=== PATIENT | female | born 1965 | race Caucasian/White ===

== ENCOUNTER 2017-08-10 14:19 | Emergency (ER) | payer MEDICAID ==
[~2017-08-10] VITALS: Ht 172.7 cm; Wt 68.0 kg
[~2017-08-10 14:19] MED LIST: ASPI81 CHEW; DOCU1CAP39 PO; FENO1TAB76 PO; HYDR50CA PO; LORTA5 PO; PROT40TA PO; SHOWER/TUB CHAIR SM; SYNT175T PO; WALKER ROLLING
[2017-08-10 14:30] VITALS: BP 105/67; PULSE 100; RESP 16; TEMP 98.4; O2SAT 100
[2017-08-10 16:29] LABS: BILIRUBIN, URINE NEG (NEG); BLOOD, URINE MOD (NEG); GLUCOSE,URINE NEG (NEG); KETONE, URINE NEG (NEG); NITRITE,URINE NEG (NEG); SQUAMOUS EPITHELIAL CELL URINE 1 /hpf (0-5); URINE COLOR YELLOW (YELLW/STRAW); URINE LEUKOCYTE ESTERASE NEG (NEG)
--- NOTE | 2017-08-10 17:34 | PD ---
HPI Chief Complaint: Skin Problem Time Seen by Provider: 17:26 Travel History International Travel<30 days: No Contact w/Intl Traveler<30days: No Traveled to known affect area: No History of Present Illness HPI patient c/o lump to scalp over last 4 days or so, some foul smelling drainage came out of it when she squeezed it, now not draining anymore. rates pain as 4/ 10, worse with touching/palpating and squeezing. patient also c/o right flank pain radiating to rt LQ today as well as red looking urine, 8/10, intermittent..... pcp is dr lewis pmx of hypothyroid, breast ca s/p mastectomy, neuropathy from chemo PFSH Past Medical History Arthritis: No Asthma: No Autoimmune Disease: No Blood Disorders: No Anxiety: No Depression: No Heart Rhythm Problems: No Cancer: Yes (BREAST CANCER LEFT) Cardiovascular Problems: No High Cholesterol: No Chemotherapy: Yes Chest Pain: No Congestive Heart Failure: No COPD: No Cerebrovascular Accident: No Diabetes: No Diminished Hearing: No Endocrine: Yes GERD: No Glaucoma: No Genitourinary: Yes ("POLYPS ON MY KIDNEY") Headaches: No Hepatitis: No Hiatal Hernia: No Hypertension: No Immune Disorder: No Implanted Vascular Access Dvce: Yes Kidney Stones: No Musculoskeletal: No Neurologic: Yes Psychiatric: No Reproductive: No Respiratory: No Myocardial Infarction: No Radiation Therapy: Yes Renal Failure: No Seizures: No Sickle Cell Disease: No Sleep Apnea: No Thyroid Disease: Yes (HYPO) Ulcer: No : 2 Para: 2 Miscarriage: 0 : 0 Past Surgical History Abdominal Surgery: Yes (HYSTERECTOMY) AICD: No Arteriovenous Shunt: No Body Medical Devices: CLIP IN LEFT BREAST Cardiac Surgery: No Section: Yes (X2 ) Ear Surgery: No Endocrine Surgery: No Eye Surgery: No Genitourinary Surgery: No Hysterectomy: Yes Insulin Pump: No Joint Replacement: No Mastectomy: Yes (jun 2013 left/left lumpectomy 2007) Oral Surgery: No Pacemaker: No Thoracic Surgery: No Other Surgery: Yes (MASECTOMY WITH LYMPH REMOVAL, C SECTION) Social History Alcohol Use: No Tobacco Use: Yes ("5-6 CIG/DAY") Substance Use: Yes ("years ago cocaine and weed") Allergies-Medications (Allergen,Severity, Reaction): Coded Allergies: acetaminophen (Verified Allergy, Mild, Itching, 3/23/18) hydrocodone (Verified Allergy, Mild, Nausea/Vomiting, 08/10/17) oxycodone (Verified Allergy, Mild, Itching, 08/10/17) *MDRO Multi-Drug Resistant Organism (Verified Adverse Reaction, Unknown, ) MRSA MRSA PCR screens negative on 01/12/2015 & 01/14/2015 Cleared per Infection Control Reported Meds & Prescriptions Reported Meds & Active Scripts Active Reported Dilaudid (Hydromorphone HCl) 8 Mg Tab 8 Mg PO Q6H PRN Phenergan (Promethazine HCl) 25 Mg Tablet 25 Mg PO Q6H PRN Synthroid (Levothyroxine Sodium) 150 Mcg Tab 150 Mcg PO DAILY Review of Systems General / Constitutional: No: Fever Eyes: No: Visual changes HENT: No: Headaches Cardiovascular: No: Chest Pain or Discomfort Respiratory: No: Shortness of Breath Gastrointestinal: No: Abdominal Pain Genitourinary: Positive: Flank Pain Musculoskeletal: No: Pain Skin: Positive Lumps Neurologic: No: Weakness Psychiatric: No: Depression Endocrine: No: Polydipsia Hematologic/Lymphatic: No: Easy Bruising Physical Exam Narrative GENERAL: SKIN: Warm and dry. HEAD: Atraumatic. Normocephalic. mid scalp is a 2 cm indurated lump on scalp no longer draining, EYES: Pupils equal and round. No scleral icterus. No injection or drainage. ENT: No nasal bleeding or discharge. Mucous membranes pink and moist. NECK: Trachea midline. No JVD. CARDIOVASCULAR: Regular rate and rhythm. RESPIRATORY: No accessory muscle use. Clear to auscultation. Breath sounds equal bilaterally. GASTROINTESTINAL: Abdomen soft, non-tender, nondistended. MUSCULOSKELETAL: Extremities without clubbing, cyanosis, or edema. No obvious deformities. NEUROLOGICAL: Awake and alert. No obvious cranial nerve deficits. Motor grossly within normal limits. Five out of 5 muscle strength in the arms and legs. Normal speech. PSYCHIATRIC: Appropriate mood and affect; insight and judgment normal. Data Data Last Documented VS Vital Signs Date Time Temp Pulse Resp B/P (MAP) Pulse Ox O2 Delivery O2 Flow Rate FiO2 08/10/17 19:59 20 08/10/17 14:30 98.4 100 105/67 (80) 100 Orders Orders Complete Blood Count With Diff (08/10/17 14:51) Comprehensive Metabolic Panel (08/10/17 14:51) Urinalysis - C+S If Indicated (08/10/17 14:51) Ct Abd/Pel W/O Iv Contrast (08/10/17 17:34) Clindamycin Inj (Cleocin Inj) (08/10/17 17:45) Clindamycin 600 Mg/Ns Premix (Cleocin 60 (08/10/17 18:00) Ketorolac Inj (Toradol Inj) (08/10/17 18:00) Labs Laboratory Tests Test 08/10/17 13:05 08/10/17 18:00 Urine Color YELLOW Urine Turbidity CLEAR Urine pH 7.0 Urine Specific [place] 1.013 Urine Protein NEG mg/dL Urine Glucose (UA) NEG mg/dL Urine Ketones NEG mg/dL Urine Occult Blood MOD Urine Nitrite NEG Urine Bilirubin NEG Urine Urobilinogen LESS THAN 2.0 MG/DL Urine Leukocyte Esterase NEG Urine RBC 105 /hpf Urine WBC 1 /hpf Urine Squamous Epithelial Cells 1 /hpf Microscopic Urinalysis Comment CULT NOT INDICATED White Blood Count 5.7 TH/MM3 Red Blood Count 4.17 MIL/MM3 Hemoglobin 11.9 GM/DL Hematocrit 36.0 % Mean Corpuscular Volume 86.4 FL Mean Corpuscular Hemoglobin 28.6 PG Mean Corpuscular Hemoglobin Concent 33.0 % Red Cell Distribution Width 14.5 % Platelet Count 251 TH/MM3 Mean Platelet Volume 8.5 FL Neutrophils (%) (Auto) 58.6 % Lymphocytes (%) (Auto) 30.8 % Monocytes (%) (Auto) 6.1 % Eosinophils (%) (Auto) 4.1 % Basophils (%) (Auto) 0.4 % Neutrophils # (Auto) 3.3 TH/MM3 Lymphocytes # (Auto) 1.8 TH/MM3 Monocytes # (Auto) 0.3 TH/MM3 Eosinophils # (Auto) 0.2 TH/MM3 Basophils # (Auto) 0.0 TH/MM3 CBC Comment DIFF FINAL Differential Comment Blood Urea Nitrogen 13 MG/DL Creatinine 0.84 MG/DL Random Glucose 102 MG/DL Total Protein 7.8 GM/DL Albumin 3.3 GM/DL Calcium Level 9.5 MG/DL Alkaline Phosphatase 98 U/L Aspartate Amino Transf (AST/SGOT) 36 U/L Alanine Aminotransferase (ALT/SGPT) 48 U/L Total Bilirubin 0.2 MG/DL Sodium Level 138 MEQ/L Potassium Level 4.3 MEQ/L Chloride Level 106 MEQ/L Carbon Dioxide Level 25.4 MEQ/L Anion Gap 7 MEQ/L Estimat Glomerular Filtration Rate 71 ML/MIN MDM Medical Decision Making Medical Screen Exam Complete: Yes Emergency Medical Condition: Yes Medical Record Reviewed: Yes Differential Diagnosis cellulitis v abscess v kidney stone v pyelo Narrative Course CT STONE: 1. For a calculus in the proximal right ureter with mild dilatation of the right renal collecting system. Small right renal cyst. 2. Cholecystectomy. 3. Nonobstructing calculi lower pole left kidney. 4. Constipation. CBC SHOWS NO LEUKOCYTOSIS/ANEMIA/OR LEFT SHIFT...NORMAL PLATELET COUNT UA SHOWS HEMATURIA WITHOUT BACTERIURIA ELECTROLYTES NORMAL, NORMAL LIVER/KIDNEY FUNCTIONS Diagnosis Primary Impression: scalp folliculitis Additional Impression: NEPHROLITHIASIS Patient Instructions: Folliculitis (ED), General Instructions, Kidney Stones ( ED) Scripts Sulfamethoxazole-Trimethoprim (Bactrim DS) 800-160 Mg Tab 1 TAB PO BID for Infection, #20 TAB 0 Refills Prov: Tj Duran MD 08/10/17 Ketorolac (Ketorolac) 10 Mg Tab 10 MG PO TID Y for Pain Management, #15 TAB 0 Refills Prov: Tj Duran MD 08/10/17 Disposition: 01 DISCHARGE HOME Condition: Stable Tj Duran MD Aug 10, 2017 17:34
[2017-08-10] MEDS ORDERED: DILA8TAB4 PO (17:37)
[2017-08-10] MEDS ORDERED: PROM25TA10 PO (17:37)
[2017-08-10] MEDS ORDERED: LEVO.15 PO (17:37)
[2017-08-10] MEDS ORDERED: CLINDAMYCIN PHOS 300 MG/2 ML VIAL IM ONE (17:45)
[2017-08-10] MEDS ORDERED: KETOROLAC TROMETHAMINE 30 MG/ML (IVP) VIAL IV PUSH ONE (18:00)
[2017-08-10] MEDS ORDERED: CLINDAMYCIN 600 MG/NS PREMIX 50 ML IV ONE (18:00)
[2017-08-10 18:51] LABS: AUTOMATED NEUTROPHIL # 3.3 TH/MM3 (1.8-7.7); BASOPHIL % 0.4 % (0.0-2.0); EOSINOPHIL # 0.2 TH/MM3 (0-0.4); EOSINOPHIL % 4.1 % (0.0-4.0); HEMOGLOBIN 11.9 GM/DL (11.6-15.3); LYMPH % 30.8 % (9.0-44.0); LYMPHOCYTE # 1.8 TH/MM3 (1.0-4.8); MEAN CELL VOLUME 86.4 FL (80.0-100.0); MEAN CORPUSCULAR HEMOGLOBIN 28.6 PG (27.0-34.0); MEAN PLATELET VOLUME 8.5 FL (7.0-11.0); MONO % 6.1 % (0.0-8.0); MONOCYTE # 0.3 TH/MM3 (0-0.9); NEUT % 58.6 % (16.0-70.0); PLATELET COUNT 251 TH/MM3 (150-450); RED BLOOD COUNT 4.17 MIL/MM3 (4.00-5.30); RED CELL DISTRIBUTION WIDTH 14.5 % (11.6-17.2); WHITE BLOOD COUNT 5.7 TH/MM3 (4.0-11.0)
[2017-08-10 19:09] LABS: ALBUMIN 3.3 GM/DL (3.4-5.0); AST (GOT) 36 U/L (15-37); BICARBONATE 25.4 MEQ/L (21.0-32.0); BLOOD UREA NITROGEN 13 MG/DL (7-18); CALCIUM 9.5 MG/DL (8.5-10.1); CHLORIDE 106 MEQ/L (98-107); CREATININE 0.84 MG/DL (0.50-1.00); GLOMERULAR FILTRATION RATE 71 ML/MIN (>89); GLUCOSE,RANDOM 102 MG/DL (74-106); SODIUM (NA) 138 MEQ/L (136-145)
[2017-08-10 19:10] LABS: ALT (GPT) 48 U/L (10-53)
[2017-08-10 19:13] LABS: ALKALINE PHOSPHATASE 98 U/L (45-117); TOTAL BILIRUBIN ADULT 0.2 MG/DL (0.2-1.0); TOTAL PROTEIN 7.8 GM/DL (6.4-8.2)
[2017-08-10 19:59] VITALS: RESP 20
--- NOTE | 2017-08-10 20:08 | RADRPT ---
EXAM DATE/TIME: 08/10/2017 18:45 [facility] COMPARISON: No previous studies available for comparison. INDICATIONS : Right flank pain; possible renal calculi. ORAL CONTRAST: No oral contrast ingested. RADIATION DOSE: 12.34 CTDIvol (mGy) MEDICAL HISTORY : Carcinoma, breast. Hypothyroidism SURGICAL HISTORY : Hysterectomy. section.Mastectomy, left. ENCOUNTER: Initial ACUITY: 1 day PAIN SCALE: 3/10 LOCATION: Right flank TECHNIQUE: Volumetric scanning of the abdomen and pelvis was performed. Using automated exposure control and ad justment of the mA and/or kV according to patient size, radiation dose was kept as low as reasonably achievable to obtain optimal diagnostic quality images. DICOM format image data is available electro nically for review and comparison. FINDINGS: There is a 7 mm x 4 mm calculus in the proximal right ureter is minimal dilatation of the right renal collecting system. There no obstructing calculi in the lower pole left kidney measuring about 2 mm i n diameter. Lung bases are clear. No acute findings in the liver, spleen, adrenals are pancreas. Previous cholecy stectomy. Large severe constipation. Trace free fluid in the pelvis. No acute bony abnormalities. CONCLUSION: 1. For a calculus in the proximal right ureter with mild dilatation of the right renal collecting sys tem. Small right renal cyst. 2. Cholecystectomy. 3. Nonobstructing calculi lower pole left kidney. 4. Constipation. Mauro Camarillo MD on August 10, 2017 at 20:02 Board Certified Radiologist. This report was verified electronically.
[2017-08-10] MEDS ORDERED: KETO10 PO (20:20)
[2017-08-10] MEDS ORDERED: BACT800T5 PO (20:20)
== END 2017-08-10 21:21 | disposition home or self-care (01) ==
LOC: NEPD 14:19
DX: L73.9 Follicular disorder, unspecified (principal); N20.2 Calculus of kidney with calculus of ureter; E03.9 Hypothyroidism, unspecified; G62.0 Drug-induced polyneuropathy; Z85.3 Personal history of malignant neoplasm of breast; F17.210 Nicotine dependence, cigarettes, uncomplicated
CPT/HCPCS: 74176; 80053; 81001; 85025; 96374; 96375; 99284; J1885

== ENCOUNTER 2017-08-27 19:21 | Emergency (ER) | payer MEDICAID ==
[~2017-08-27] VITALS: Ht 172.7 cm; Wt 68.6 kg
[~2017-08-27 19:21] MED LIST changes: -ASPI81 CHEW; +BACT800T5 PO; +DILA8TAB4 PO; -DOCU1CAP39 PO; -FENO1TAB76 PO; -HYDR50CA PO; +KETO10 PO; +LEVO.15 PO; -LORTA5 PO; +PROM25TA10 PO; -PROT40TA PO; -SHOWER/TUB CHAIR SM; -SYNT175T PO; -WALKER ROLLING
[2017-08-27 20:03] VITALS: BP 157/109; PULSE 99; RESP 20; TEMP 98.5; O2SAT 99
[2017-08-28] MEDS ORDERED: SODIUM CHLOR 0.9% 1000 ML INJ 1,000 ML IV SCH (00:07)
--- NOTE | 2017-08-28 00:12 | PD ---
HPI Chief Complaint: Flank/Kidney Pain Time Seen by Provider: 00:07 Travel History International Travel<30 days: No Contact w/Intl Traveler<30days: No Traveled to known affect area: No History of Present Illness HPI 51-year-old female patient with history of kidney stones, complex bladder cyst, previous breast cancer status post treatment, presents to the ER today because she has had several days history of suprapubic pains with radiation up to the right flank area. She states the pain is a 10 out of 10. She has been nauseous but denies any vomiting, fevers, or any other symptoms. She states that she is also been having some blood in her urine. Modifying Factors: None Associated Signs & Symptoms: Right flank pain, lower abdominal pain, blood in the urine Risk Factors: Kidney stone history, but complex bladder cyst PFSH Past Medical History Arthritis: No Asthma: No Autoimmune Disease: No Blood Disorders: No Anxiety: No Depression: No Heart Rhythm Problems: No Cancer: Yes (BREAST CANCER LEFT) Cardiovascular Problems: No High Cholesterol: No Chemotherapy: Yes Chest Pain: No Congestive Heart Failure: No COPD: No Cerebrovascular Accident: No Diabetes: No Diminished Hearing: No Endocrine: Yes GERD: No Glaucoma: No Genitourinary: Yes ("POLYPS ON MY KIDNEY") Headaches: No Hepatitis: No Hiatal Hernia: No Hypertension: No Immune Disorder: No Implanted Vascular Access Dvce: Yes Kidney Stones: No Musculoskeletal: No Neurologic: Yes Psychiatric: No Reproductive: No Respiratory: No Immunizations Current: Yes Myocardial Infarction: No Radiation Therapy: Yes Renal Failure: No Seizures: No Sickle Cell Disease: No Sleep Apnea: No Thyroid Disease: Yes (HYPO) Ulcer: No Menopausal: Yes : 2 Para: 2 Miscarriage: 0 : 0 Past Surgical History Abdominal Surgery: Yes (HYSTERECTOMY) AICD: No Arteriovenous Shunt: No Body Medical Devices: CLIP IN LEFT BREAST Cardiac Surgery: No Section: Yes (X2 ) Ear Surgery: No Endocrine Surgery: No Eye Surgery: No Genitourinary Surgery: No Hysterectomy: Yes Insulin Pump: No Joint Replacement: No Mastectomy: Yes (jun 2013 left/left lumpectomy 2007) Oral Surgery: No Pacemaker: No Thoracic Surgery: No Other Surgery: Yes (MASECTOMY WITH LYMPH REMOVAL, C SECTION) Social History Alcohol Use: No Tobacco Use: Yes ("5-6 CIG/DAY") Substance Use: Yes ("years ago cocaine and weed") Allergies-Medications (Allergen,Severity, Reaction): Coded Allergies: acetaminophen (Verified Allergy, Mild, Itching, 08/10/17) hydrocodone (Verified Allergy, Mild, Nausea/Vomiting, 08/10/17) oxycodone (Verified Allergy, Mild, Itching, 08/10/17) *MDRO Multi-Drug Resistant Organism (Verified Adverse Reaction, Unknown, ) MRSA MRSA PCR screens negative on 01/12/2015 & 01/14/2015 Cleared per Infection Control Reported Meds & Prescriptions Reported Meds & Active Scripts Active Bactrim DS (Sulfamethoxazole-Trimethoprim) 800-160 Mg Tab 1 Tab PO BID Ketorolac (Ketorolac Tromethamine) 10 Mg Tab 10 Mg PO TID PRN Reported Dilaudid (Hydromorphone HCl) 8 Mg Tab 8 Mg PO Q6H PRN Phenergan (Promethazine HCl) 25 Mg Tablet 25 Mg PO Q6H PRN Synthroid (Levothyroxine Sodium) 150 Mcg Tab 150 Mcg PO DAILY Review of Systems Except as stated in HPI: all other systems reviewed are Neg Physical Exam Narrative GENERAL: Well-developed middle-aged female patient currently in mild distress. Awake and oriented 3. SKIN: Focused skin assessment warm/dry. HEAD: Atraumatic. Normocephalic. EYES: Pupils equal and round. No scleral icterus. No injection or drainage. ENT: No nasal bleeding or discharge. Mucous membranes pink and moist. NECK: Trachea midline. No JVD. CARDIOVASCULAR: Regular rate and rhythm. No murmur appreciated. RESPIRATORY: No accessory muscle use. Clear to auscultation. Breath sounds equal bilaterally. GASTROINTESTINAL: Abdomen soft, pelvic and suprapubic tenderness without guarding or rebound, nondistended. Hepatic and splenic margins not palpable. MUSCULOSKELETAL: No obvious deformities. No clubbing. No cyanosis. No edema. BACK: Right CVA tenderness. No rash. No point tenderness on palpation of the spine. NEUROLOGICAL: Awake and alert. No obvious cranial nerve deficits. Motor grossly within normal limits. Normal speech. PSYCHIATRIC: Appropriate mood and affect; insight and judgment normal. Data Data Last Documented VS Vital Signs Date Time Temp Pulse Resp B/P (MAP) Pulse Ox O2 Delivery O2 Flow Rate FiO2 08/27/17 20:03 98.5 99 20 157/109 (125) 99 Orders Orders Urinalysis - C+S If Indicated (08/28/17 00:02) Complete Blood Count With Diff (08/28/17 00:07) Comprehensive Metabolic Panel (08/28/17 00:07) Ct Abd/Pel W/O Iv Contrast (08/28/17 00:07) Iv Access Insert/Monitor (08/28/17 00:07) Ecg Monitoring (08/28/17 00:07) Oximetry (08/28/17 00:07) Sodium Chlor 0.9% 1000 Ml Inj (Ns 1000 M (08/28/17 00:07) Sodium Chloride 0.9% Flush (Ns Flush) (08/28/17 00:15) Ketorolac Inj (Toradol Inj) (08/28/17 00:15) Labs Laboratory Tests Test 08/28/17 00:20 White Blood Count 5.7 TH/MM3 Red Blood Count 4.55 MIL/MM3 Hemoglobin 13.0 GM/DL Hematocrit 38.6 % Mean Corpuscular Volume 85.0 FL Mean Corpuscular Hemoglobin 28.6 PG Mean Corpuscular Hemoglobin Concent 33.6 % Red Cell Distribution Width 14.6 % Platelet Count 300 TH/MM3 Mean Platelet Volume 8.2 FL Neutrophils (%) (Auto) 53.1 % Lymphocytes (%) (Auto) 37.8 % Monocytes (%) (Auto) 5.9 % Eosinophils (%) (Auto) 2.2 % Basophils (%) (Auto) 1.0 % Neutrophils # (Auto) 3.0 TH/MM3 Lymphocytes # (Auto) 2.1 TH/MM3 Monocytes # (Auto) 0.3 TH/MM3 Eosinophils # (Auto) 0.1 TH/MM3 Basophils # (Auto) 0.1 TH/MM3 CBC Comment DIFF FINAL Differential Comment MDM Medical Decision Making Medical Screen Exam Complete: Yes Emergency Medical Condition: Yes Medical Record Reviewed: Yes Interpretation(s) Laboratory Tests Test 08/28/17 00:20 Differential Diagnosis Lower abdominal pains, right flank pain, hematuria: Renal colic versus UTI/ pyelonephritis versus other acute intra-abdominal processes Narrative Course Lab work, IV fluids, Toradol and CT has been ordered for the patient. Physician Communication Physician Communication Case is signed out at 1 AM to nurse practitioner Angy. Awaiting workup and CAT scan. Disposition based on findings. Diagnosis Primary Impression: Abdominal pain Condition: Stable Isabella Jones MD Aug 28, 2017 00:11
[2017-08-28] MEDS ORDERED: KETOROLAC TROMETHAMINE 30 MG/ML (IVP) VIAL IVP ONE (00:15)
[2017-08-28] MEDS ORDERED: SODIUM CHLORIDE 0.9% FLUSH 10 ML FLUSH IV FLUSH PRN (00:15)
[2017-08-28 00:27] LABS: BASOPHIL # 0.1 TH/MM3 (0-0.2); EOSINOPHIL # 0.1 TH/MM3 (0-0.4); EOSINOPHIL % 2.2 % (0.0-4.0); HEMATOCRIT 38.6 % (35.0-46.0); LYMPH % 37.8 % (9.0-44.0); LYMPHOCYTE # 2.1 TH/MM3 (1.0-4.8); MEAN CORPUSCULAR HEMOGLOBIN 28.6 PG (27.0-34.0); MEAN CORPUSCULAR HGB CONC 33.6 % (32.0-36.0); MEAN PLATELET VOLUME 8.2 FL (7.0-11.0); MONO % 5.9 % (0.0-8.0); MONOCYTE # 0.3 TH/MM3 (0-0.9); NEUT % 53.1 % (16.0-70.0); PLATELET COUNT 300 TH/MM3 (150-450); RED BLOOD COUNT 4.55 MIL/MM3 (4.00-5.30); RED CELL DISTRIBUTION WIDTH 14.6 % (11.6-17.2); WHITE BLOOD COUNT 5.7 TH/MM3 (4.0-11.0)
[2017-08-28 00:58] LABS: ALKALINE PHOSPHATASE 87 U/L (45-117); TOTAL BILIRUBIN ADULT 0.5 MG/DL (0.2-1.0); TOTAL PROTEIN 8.6 GM/DL (6.4-8.2)
--- NOTE | 2017-08-28 01:00 | RADRPT ---
EXAM DATE/TIME: 08/28/2017 00:42 [facility] COMPARISON: CT ABDOMEN & PELVIS W/O CONTRAST, August 10, 2017, 18:45. INDICATIONS : Right flank and lower qaudrant pain. ORAL CONTRAST: No oral contrast ingested. RADIATION DOSE: 7.33 CTDIvol (mGy) MEDICAL HISTORY : Carcinoma, breast. Renal calculi. SURGICAL HISTORY : Hysterectomy. Mastectomy, left. ENCOUNTER: Initial ACUITY: 2 days PAIN SCALE: 10/10 LOCATION: Right flank TECHNIQUE: Volumetric scanning of the abdomen and pelvis was performed. Using automated exposure control and ad justment of the mA and/or kV according to patient size, radiation dose was kept as low as reasonably achievable to obtain optimal diagnostic quality images. DICOM format image data is available electro nically for review and comparison. FINDINGS: LOWER LUNGS: The visualized lower lungs are clear. LIVER: Homogeneous density without lesion. There is no dilation of the biliary tree. Cholecystectomy clips. SPLEEN: Normal size without lesion. PANCREAS: Within normal limits. KIDNEYS: Normal in size and shape. There is no hydronephrosis left kidney. Several punctate nonobstructing le ft-sided renal calculi measures 1-2 mm. No right-sided renal calculi however there is mild to moderat e right-sided hydronephrosis and hydroureter leading to a distal right ureteral calculus measuring 5- 6 mm. ADRENAL GLANDS: Within normal limits. VASCULAR: There is no aortic aneurysm. BOWEL/MESENTERY: The stomach, small bowel, and colon demonstrate no acute abnormality. There is no free intraperitone al air or fluid. Normal appendix. ABDOMINAL WALL: Within normal limits. RETROPERITONEUM: There is no lymphadenopathy. BLADDER: No wall thickening or mass. REPRODUCTIVE: Within normal limits. INGUINAL: There is no lymphadenopathy or hernia. MUSCULOSKELETAL: Within normal limits for patient age. CONCLUSION: 1. Obstructing distal right ureteral calculus measures 5-6 mm. 2. Several punctate nonobstructing left-sided renal calculi. 3. Status post cholecystectomy. Marcus Sales MD on August 28, 2017 at 0:55 Board Certified Radiologist. This report was verified electronically.
[2017-08-28 01:10] LABS: ALBUMIN 3.7 GM/DL (3.4-5.0); ALT (GPT) 44 U/L (10-53); AST (GOT) 45 U/L (15-37); BICARBONATE 27.1 MEQ/L (21.0-32.0); BLOOD UREA NITROGEN 14 MG/DL (7-18); CALCIUM 9.5 MG/DL (8.5-10.1); CHLORIDE 105 MEQ/L (98-107); CREATININE 1.04 MG/DL (0.50-1.00); GLOMERULAR FILTRATION RATE 55 ML/MIN (>89); GLUCOSE,RANDOM 78 MG/DL (74-106); SODIUM (NA) 140 MEQ/L (136-145)
[2017-08-28] MEDS ORDERED: XANA2TAB2 PO (01:27)
[2017-08-28] MEDS ORDERED: SODIUM CHLOR 0.9% 1000 ML INJ 1,000 ML IV ONE (02:00)
[2017-08-28 04:32] LABS: AMORPHOUS SEDIMENT, URINE RARE; BILIRUBIN, URINE NEG (NEG); BLOOD, URINE LARGE (NEG); GLUCOSE,URINE NEG (NEG); KETONE, URINE TRACE mg/dL (NEG); MUCUS URINE FEW /lpf (OCC); NITRITE,URINE NEG (NEG); RENAL EPITHELIAL CELLS <1 /hpf; URINE COLOR YELLOW (YELLW/STRAW); URINE LEUKOCYTE ESTERASE TRACE (NEG)
[2017-08-28] MEDS ORDERED: CEPH-460 PO (04:44)
[2017-08-28] MEDS ORDERED: TAMS5CAP PO (04:44)
[2017-08-28] MEDS ORDERED: IBUP-232 PO (04:44)
--- NOTE | 2017-08-28 04:45 | PD ---
Physical Exam Time Seen by Provider: 04:41 Narrative Please refer to previous providers documentation for details regarding the patient's current visit. Data Data Last Documented VS Vital Signs Date Time Temp Pulse Resp B/P (MAP) Pulse Ox O2 Delivery O2 Flow Rate FiO2 08/27/17 20:03 98.5 99 20 157/109 (125) 99 Orders Orders Urinalysis - C+S If Indicated (08/28/17 00:02) Complete Blood Count With Diff (08/28/17 00:07) Comprehensive Metabolic Panel (08/28/17 00:07) Ct Abd/Pel W/O Iv Contrast (08/28/17 00:07) Iv Access Insert/Monitor (08/28/17 00:07) Ecg Monitoring (08/28/17 00:07) Oximetry (08/28/17 00:07) Sodium Chlor 0.9% 1000 Ml Inj (Ns 1000 M (08/28/17 00:07) Sodium Chloride 0.9% Flush (Ns Flush) (08/28/17 00:15) Ketorolac Inj (Toradol Inj) (08/28/17 00:15) Sodium Chlor 0.9% 1000 Ml Inj (Ns 1000 M (08/28/17 02:00) Urine Culture (08/28/17 04:15) Cefazolin Inj (Ancef Inj) (08/28/17 04:45) Ed Discharge Order (08/28/17 04:41) Labs Laboratory Tests Test 08/28/17 00:20 08/28/17 04:15 White Blood Count 5.7 TH/MM3 Red Blood Count 4.55 MIL/MM3 Hemoglobin 13.0 GM/DL Hematocrit 38.6 % Mean Corpuscular Volume 85.0 FL Mean Corpuscular Hemoglobin 28.6 PG Mean Corpuscular Hemoglobin Concent 33.6 % Red Cell Distribution Width 14.6 % Platelet Count 300 TH/MM3 Mean Platelet Volume 8.2 FL Neutrophils (%) (Auto) 53.1 % Lymphocytes (%) (Auto) 37.8 % Monocytes (%) (Auto) 5.9 % Eosinophils (%) (Auto) 2.2 % Basophils (%) (Auto) 1.0 % Neutrophils # (Auto) 3.0 TH/MM3 Lymphocytes # (Auto) 2.1 TH/MM3 Monocytes # (Auto) 0.3 TH/MM3 Eosinophils # (Auto) 0.1 TH/MM3 Basophils # (Auto) 0.1 TH/MM3 CBC Comment DIFF FINAL Differential Comment Blood Urea Nitrogen 14 MG/DL Creatinine 1.04 MG/DL Random Glucose 78 MG/DL Total Protein 8.6 GM/DL Albumin 3.7 GM/DL Calcium Level 9.5 MG/DL Alkaline Phosphatase 87 U/L Aspartate Amino Transf (AST/SGOT) 45 U/L Alanine Aminotransferase (ALT/SGPT) 44 U/L Total Bilirubin 0.5 MG/DL Sodium Level 140 MEQ/L Potassium Level 3.9 MEQ/L Chloride Level 105 MEQ/L Carbon Dioxide Level 27.1 MEQ/L Anion Gap 8 MEQ/L Estimat Glomerular Filtration Rate 55 ML/MIN Urine Color YELLOW Urine Turbidity HAZY Urine pH 8.0 Urine Specific [place] 1.014 Urine Protein TRACE mg/dL Urine Glucose (UA) NEG mg/dL Urine Ketones TRACE mg/dL Urine Occult Blood LARGE Urine Nitrite NEG Urine Bilirubin NEG Urine Urobilinogen LESS THAN 2.0 MG/DL Urine Leukocyte Esterase TRACE Urine RBC /hpf Urine WBC 10 /hpf Urine Renal Epithelial Cells <1 /hpf Urine Amorphous Sediment RARE Urine Mucus FEW /lpf Microscopic Urinalysis Comment CULTURE INDICATED MDM Medical Record Reviewed: Yes Supervised Visit with KALEB: No Narrative Course Patient was signed out to me with CT imaging pending. Urinalysis is not yet collected. CT imaging shows Last Impressions Abdomen/Pelvis CT 08/28/17 0007 Signed Impressions: Service Date/Time: Monday, August 28, 2017 00:42 - CONCLUSION: 1. Obstructing distal right ureteral calculus measures 5-6 mm. 2. Several punctate nonobstructing left-sided renal calculi. 3. Status post cholecystectomy. Marcus Sales MD Laboratory Tests Test 08/28/17 00:20 08/28/17 04:15 White Blood Count 5.7 TH/MM3 Red Blood Count 4.55 MIL/MM3 Hemoglobin 13.0 GM/DL Hematocrit 38.6 % Mean Corpuscular Volume 85.0 FL Mean Corpuscular Hemoglobin 28.6 PG Mean Corpuscular Hemoglobin Concent 33.6 % Red Cell Distribution Width 14.6 % Platelet Count 300 TH/MM3 Mean Platelet Volume 8.2 FL Neutrophils (%) (Auto) 53.1 % Lymphocytes (%) (Auto) 37.8 % Monocytes (%) (Auto) 5.9 % Eosinophils (%) (Auto) 2.2 % Basophils (%) (Auto) 1.0 % Neutrophils # (Auto) 3.0 TH/MM3 Lymphocytes # (Auto) 2.1 TH/MM3 Monocytes # (Auto) 0.3 TH/MM3 Eosinophils # (Auto) 0.1 TH/MM3 Basophils # (Auto) 0.1 TH/MM3 CBC Comment DIFF FINAL Differential Comment Blood Urea Nitrogen 14 MG/DL Creatinine 1.04 MG/DL Random Glucose 78 MG/DL Total Protein 8.6 GM/DL Albumin 3.7 GM/DL Calcium Level 9.5 MG/DL Alkaline Phosphatase 87 U/L Aspartate Amino Transf (AST/SGOT) 45 U/L Alanine Aminotransferase (ALT/SGPT) 44 U/L Total Bilirubin 0.5 MG/DL Sodium Level 140 MEQ/L Potassium Level 3.9 MEQ/L Chloride Level 105 MEQ/L Carbon Dioxide Level 27.1 MEQ/L Anion Gap 8 MEQ/L Estimat Glomerular Filtration Rate 55 ML/MIN Urine Color YELLOW Urine Turbidity HAZY Urine pH 8.0 Urine Specific [place] 1.014 Urine Protein TRACE mg/dL Urine Glucose (UA) NEG mg/dL Urine Ketones TRACE mg/dL Urine Occult Blood LARGE Urine Nitrite NEG Urine Bilirubin NEG Urine Urobilinogen LESS THAN 2.0 MG/DL Urine Leukocyte Esterase TRACE Urine RBC /hpf Urine WBC 10 /hpf Urine Renal Epithelial Cells <1 /hpf Urine Amorphous Sediment RARE Urine Mucus FEW /lpf Microscopic Urinalysis Comment CULTURE INDICATED Patient is resting comfortably in the bed. Her pain is completely controlled at this time. She will be discharged to follow-up with urology. I will provide her with oral antibiotics, pain control, and Flomax. A mandatory referral will be placed. Patient agrees to return immediately with acute worsening symptoms. Diagnosis Primary Impression: Right nephrolithiasis Additional Impression: UTI (urinary tract infection) Qualified Codes: N39.0 - Urinary tract infection, site not specified; R31.9 - Hematuria, unspecified Referrals: Primary Care Physician Urologist Patient Instructions: General Instructions, Kidney Stones (ED) Departure Forms: Tests/Procedures, Work Release Enter return to work date: Aug 30, 2017 Additional Instruction: Maintain adequate oral hydration Follow-up with the urologist Continue pain control as already prescribed Return immediately with any acute worsening symptoms Med/Other Pt SpecificInfo: Prescription(s) given Scripts Tamsulosin (Flomax) 0.4 Mg Cap 0.4 MG PO HS for Manage Prostate Problems, #5 CAP 0 Refills Prov: Angy Light 08/28/17 Ibuprofen (Ibuprofen) 600 Mg Tab 600 MG PO Q8HR Y for PAIN, #30 TAB 0 Refills Prov: Angy Light 08/28/17 Cephalexin (Keflex) 500 Mg Cap 500 MG PO Q12H for Infection for 7 Days, #14 CAP 0 Refills Prov: Angy Light 08/28/17 Disposition: 01 DISCHARGE HOME Condition: Stable Angy Light Aug 28, 2017 04:45
== END 2017-08-28 06:45 | disposition home or self-care (01) ==
LOC: NEPD 19:21
DX: N20.0 Calculus of kidney (principal); N39.0 Urinary tract infection, site not specified; E03.9 Hypothyroidism, unspecified; F17.210 Nicotine dependence, cigarettes, uncomplicated
CPT/HCPCS: 74176; 80053; 81001; 85025; 87086; 96374; 96375; 99284; J0690; J1885; J7030

== ENCOUNTER 2017-09-28 08:49 | Observation (INO) | payer MEDICAID ==
[~2017-09-28] VITALS: Ht 170.2 cm; Wt 61.8 kg
[~2017-09-28 08:49] MED LIST changes: -BACT800T5 PO; +CEPH-460 PO; +IBUP-232 PO; +TAMS5CAP PO; +XANA2TAB2 PO
[2017-09-28 08:56] VITALS: BP 121/82; PULSE 103; RESP 16; TEMP 97.7; O2SAT 99
[2017-09-28] MEDS ORDERED: TETANUS/DIPHTHERIA TOXOID ADULT 0.5 ML VIAL IM ONE (09:30)
[2017-09-28] MEDS ORDERED: LIDOCAINE 1%/EPINEPHrine 1:100,000 SOLN 20 ML VIAL INFIL ONE (09:30)
[2017-09-28 09:49] LABS: AUTOMATED NEUTROPHIL # 7.7 TH/MM3 (1.8-7.7); BASOPHIL % 0.3 % (0.0-2.0); EOSINOPHIL # 0.3 TH/MM3 (0-0.4); EOSINOPHIL % 2.5 % (0.0-4.0); HEMATOCRIT 38.9 % (35.0-46.0); HEMOGLOBIN 13.1 GM/DL (11.6-15.3); LYMPHOCYTE # 1.5 TH/MM3 (1.0-4.8); MEAN CELL VOLUME 85.3 FL (80.0-100.0); MEAN CORPUSCULAR HEMOGLOBIN 28.6 PG (27.0-34.0); MEAN CORPUSCULAR HGB CONC 33.6 % (32.0-36.0); MONO % 5.8 % (0.0-8.0); MONOCYTE # 0.6 TH/MM3 (0-0.9); NEUT % 76.4 % (16.0-70.0); PLATELET COUNT 229 TH/MM3 (150-450); RED BLOOD COUNT 4.56 MIL/MM3 (4.00-5.30); RED CELL DISTRIBUTION WIDTH 14.6 % (11.6-17.2); WHITE BLOOD COUNT 10.1 TH/MM3 (4.0-11.0)
[2017-09-28 10:03] LABS: BICARBONATE 25.4 MEQ/L (21.0-32.0); CALCIUM 8.9 MG/DL (8.5-10.1); CREATININE 1.04 MG/DL (0.50-1.00)
--- NOTE | 2017-09-28 10:17 | PD ---
HPI Chief Complaint: Skin Problem Time Seen by Provider: 09:14 Travel History International Travel<30 days: No Contact w/Intl Traveler<30days: No Traveled to known affect area: No History of Present Illness HPI This is a 51-year-old female with history of breast cancer, presents today with complaints of left forearm abscess with redness and pain running up her left arm. Patient reports intermittent fevers at home. She states that she is normally able to control the fever with Motrin. Patient states that she has had multiple lesions appear on her upper extremities. She states that they normally hero however this 1 developed into an abscess. She states that unfortunately she tried to drain it while in the shower and it is become more red and irritated. The patient states that she has had neutropenia in the past when she was receiving chemo for her breast cancer. There is no reported IV drug use. Patient does use tobacco products. 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") Headaches: No Hepatitis: No Hiatal Hernia: No Hypertension: No Immune Disorder: No Implanted Vascular Access Dvce: Yes Kidney Stones: No Musculoskeletal: No Neurologic: Yes Psychiatric: No Reproductive: No Respiratory: No Immunizations Current: Yes Myocardial Infarction: No Radiation Therapy: Yes Renal Failure: No Seizures: No Sickle Cell Disease: No Sleep Apnea: No Thyroid Disease: Yes (HYPO) Ulcer: No Menopausal: Yes : 2 Para: 2 Miscarriage: 0 : 0 Past Surgical History Abdominal Surgery: Yes (HYSTERECTOMY) AICD: No Arteriovenous Shunt: No Body Medical Devices: CLIP IN LEFT BREAST Cardiac Surgery: No Section: Yes (X2 ) Ear Surgery: No Endocrine Surgery: No Eye Surgery: No Genitourinary Surgery: No Hysterectomy: Yes Insulin Pump: No Joint Replacement: No Mastectomy: Yes (jun 2013 left/left lumpectomy 2007) Oral Surgery: No Pacemaker: No Thoracic Surgery: No Other Surgery: Yes (MASECTOMY WITH LYMPH REMOVAL, C SECTION) Social History Alcohol Use: No Tobacco Use: Yes ("5-6 CIG/DAY") Substance Use: Yes ("years ago cocaine and weed") Allergies-Medications (Allergen,Severity, Reaction): Coded Allergies: acetaminophen (Verified Allergy, Mild, Itching, 08/10/17) hydrocodone (Verified Allergy, Mild, Nausea/Vomiting, 08/10/17) oxycodone (Verified Allergy, Mild, Itching, 08/10/17) *MDRO Multi-Drug Resistant Organism (Verified Adverse Reaction, Unknown, ) MRSA MRSA PCR screens negative on 01/12/2015 & 01/14/2015 Cleared per Infection Control Reported Meds & Prescriptions Reported Meds & Active Scripts Active Flomax (Tamsulosin HCl) 0.4 Mg Cap 0.4 Mg PO HS Ibuprofen 600 Mg Tab 600 Mg PO Q8HR PRN Keflex (Cephalexin) 500 Mg Cap 500 Mg PO Q12H 7 Days Ketorolac (Ketorolac Tromethamine) 10 Mg Tab 10 Mg PO TID PRN Reported Xanax (Alprazolam) 2 Mg Tab 2.5 Mg PO BID PRN Dilaudid (Hydromorphone HCl) 8 Mg Tab 8 Mg PO Q6H PRN Phenergan (Promethazine HCl) 25 Mg Tablet 25 Mg PO Q6H PRN Synthroid (Levothyroxine Sodium) 150 Mcg Tab 150 Mcg PO DAILY Review of Systems Except as stated in HPI: all other systems reviewed are Neg General / Constitutional: Positive: Fever, No: Chills HENT: No: Headaches, Neck Stiffness, Neck Pain Cardiovascular: No: Chest Pain or Discomfort, Palpitations Respiratory: No: Cough, Shortness of Breath Gastrointestinal: No: Nausea, Vomiting Genitourinary: No: Frequency, Dysuria Musculoskeletal: Positive: Limited ROM (Secondary to pain), Edema, Pain (Left forearm), Other (Abscess left forearm) Skin: Positive Lesions (Abscess left forearm), Positive Other (Red streaks running up her left arm from the abscess site. Patient also has multiple other excoriated lesions on her right hand and left hand.) Neurologic: No: Weakness, Dizziness, Headache Psychiatric: No: Substance Abuse Physical Exam Narrative GENERAL: Well-developed well-nourished female in no acute respiratory distress. SKIN: Focused skin assessment warm/dry. HEAD: Atraumatic. Normocephalic. EYES: Pupils equal and round. No scleral icterus. No injection or drainage. ENT: No nasal bleeding or discharge. Mucous membranes pink and moist. NECK: Trachea midline. Supple. CARDIOVASCULAR: Regular rate and rhythm. No murmur appreciated. RESPIRATORY: No accessory muscle use. Clear to auscultation. Breath sounds equal bilaterally. GASTROINTESTINAL: Abdomen soft, non-tender, nondistended. Hepatic and splenic margins not palpable. MUSCULOSKELETAL: On examination patient's left forearm, patient has a large 7 x 4 cm erythematous area with a large fluctuant abscess noted at the inferior pole. There is lymphangitis noted above running up to her armpit. Patient also has multiple scabs on her bilateral hands. NEUROLOGICAL: Awake and alert. No obvious cranial nerve deficits. Motor grossly within normal limits. Normal speech. Data Data Last Documented VS Vital Signs Date Time Temp Pulse Resp B/P (MAP) Pulse Ox O2 Delivery O2 Flow Rate FiO2 09/28/17 08:56 97.7 103 16 121/82 (95) 99 Orders Orders Basic Metabolic Panel (Bmp) (09/28/17 09:22) Complete Blood Count With Diff (09/28/17 09:22) Blood Culture (09/28/17 09:22) Wound Culture And Gram Stain (09/28/17:22) Iv Access Insert/Monitor (09/28/17:22) Tetanus/Diphtheria Tox Adult (Tetanus/Di (09/28/17 09:30) Lidocai-Epi 1%-1:100,000 Inj (Xylocaine- (09/28/17 09:30) Lactic Acid Sepsis Protocol (09/28/17 09:35) Hydromorphone (Dilaudid) (09/28/17 11:30) Levothyroxine (Synthroid) (09/29/17 06:00) Promethazine (Phenergan) (09/28/17 11:30) Place In Observation (09/28/17 ) Code Status (09/28/17 11:47) Vital Signs (Adult) Q4H (09/28/17 11:47) Activity Oob Ad Carrol (09/28/17 11:47) Diet Regular Basic (09/28/17 Lunch) Sodium Chlor 0.9% 1000 Ml Inj (Ns 1000 M (09/28/17 11:47) Sodium Chloride 0.9% Flush (Ns Flush) (09/28/17 12:00) Sodium Chloride 0.9% Flush (Ns Flush) (09/28/17 21:00) Ondansetron Inj (Zofran Inj) (09/28/17 12:00) Comprehensive Metabolic Panel (09/29/17 06:00) Complete Blood Count With Diff (09/29/17 06:00) Case Management Consult (09/28/17 11:47) Consult Wound / Ostomy Nurse (09/28/17 11:47) Enoxaparin Inj (Lovenox Inj) (09/28/17 14:00) Naloxone Inj (Narcan Inj) (09/28/17 12:00) Docusate Sodium-Senna (Marguerite-Colace) (09/28/17 21:00) Magnesium Hydroxide Liq (Milk Of Magnesi (09/28/17 12:00) Sennosides (Senokot) (09/28/17 12:00) Bisacodyl Supp (Dulcolax Supp) (09/28/17 12:00) Lactulose Liq (Lactulose Liq) (09/28/17 12:00) Vancomycin Inj (Vancomycin Inj) (09/28/17 12:00) Vancomycin Consult Pharmacy (Vancomycin (09/28/17 12:00) Urinalysis - C+S If Indicated (09/28/17 11:55) Ondansetron Odt (Zofran Odt) (09/28/17 12:00) Mrsa Screen (09/28/17 12:00) Drug Screen, Random Urine (09/28/17 12:00) Forearm (2vws) (09/28/17 ) Ibuprofen (Motrin) (09/28/17 13:15) Naloxone Inj (Narcan Inj) (09/28/17 13:15) Admit Order (Ed Use Only) (09/28/17 13:26) Morphine Inj (Morphine Inj) (09/28/17 14:00) Morphine Inj (Morphine Inj) (09/28/17 14:00) Labs Laboratory Tests Test 09/28/17 09:30 White Blood Count 10.1 TH/MM3 Red Blood Count 4.56 MIL/MM3 Hemoglobin 13.1 GM/DL Hematocrit 38.9 % Mean Corpuscular Volume 85.3 FL Mean Corpuscular Hemoglobin 28.6 PG Mean Corpuscular Hemoglobin Concent 33.6 % Red Cell Distribution Width 14.6 % Platelet Count 229 TH/MM3 Mean Platelet Volume 8.0 FL Neutrophils (%) (Auto) 76.4 % Lymphocytes (%) (Auto) 15.0 % Monocytes (%) (Auto) 5.8 % Eosinophils (%) (Auto) 2.5 % Basophils (%) (Auto) 0.3 % Neutrophils # (Auto) 7.7 TH/MM3 Lymphocytes # (Auto) 1.5 TH/MM3 Monocytes # (Auto) 0.6 TH/MM3 Eosinophils # (Auto) 0.3 TH/MM3 Basophils # (Auto) 0.0 TH/MM3 CBC Comment DIFF FINAL Differential Comment Blood Urea Nitrogen 22 MG/DL Creatinine 1.04 MG/DL Random Glucose 91 MG/DL Calcium Level 8.9 MG/DL Sodium Level 138 MEQ/L Potassium Level 3.5 MEQ/L Chloride Level 105 MEQ/L Carbon Dioxide Level 25.4 MEQ/L Anion Gap 8 MEQ/L Estimat Glomerular Filtration Rate 55 ML/MIN Lactic Acid Level 0.8 mmol/L MDM Medical Decision Making Medical Screen Exam Complete: Yes Emergency Medical Condition: Yes Differential Diagnosis MRSA versus folliculitis versus lymphangitis Narrative Course 51-year-old female history of breast cancer, previous multi drug-resistant organisms, presents here today with left arm abscess and cellulitis. The patient has a large fluctuant abscess with lymphangitis running upper arm. Given her history of previous immune compromised state, patient will be admitted for IV antibiotics. Abscess has been I&D by Noah Busch PA-C. Cultures have been sent for both blood and wound. Patient was started on vancomycin. She will be admitted to the hospital as a full admit. Case was discussed with the family practice resident service and they are agreeable to the admission. Patient will be admitted to Dr. Grossman the attending physician. Diagnosis Primary Impression: Abscess of left forearm Additional Impressions: History of breast cancer History of previous [id number] bacteria Admitting Information Admitting Physician Requests: Admit Zhen Gan MD September 28, 2017 10:17
--- NOTE | 2017-09-28 10:35 | PD ---
Physical Exam Date Seen by Provider: September 28, 2017 Time Seen by Provider: 10:32 Narrative I was asked by Dr. Gan to see this patient for an abscess of the left forearm. I&D of abscess was performed. Wound culture was obtained. Please see my procedure note. Data Data Last Documented VS Vital Signs Date Time Temp Pulse Resp B/P (MAP) Pulse Ox O2 Delivery O2 Flow Rate FiO2 09/28/17 08:56 97.7 103 16 121/82 (95) 99 Orders Orders Basic Metabolic Panel (Bmp) (09/28/17:22) Complete Blood Count With Diff (09/28/17:) Blood Culture (09/28/17:) Wound Culture And Gram Stain (09/28/17:) Iv Access Insert/Monitor (09/28/17:) Tetanus/Diphtheria Tox Adult (Tetanus/Di (09/28/17 09:30) Lidocai-Epi 1%-1:100,000 Inj (Xylocaine- (09/28/17 09:30) Lactic Acid Sepsis Protocol (09/28/17 09:35) Labs Laboratory Tests Test 09/28/17 09:30 White Blood Count 10.1 TH/MM3 Red Blood Count 4.56 MIL/MM3 Hemoglobin 13.1 GM/DL Hematocrit 38.9 % Mean Corpuscular Volume 85.3 FL Mean Corpuscular Hemoglobin 28.6 PG Mean Corpuscular Hemoglobin Concent 33.6 % Red Cell Distribution Width 14.6 % Platelet Count 229 TH/MM3 Mean Platelet Volume 8.0 FL Neutrophils (%) (Auto) 76.4 % Lymphocytes (%) (Auto) 15.0 % Monocytes (%) (Auto) 5.8 % Eosinophils (%) (Auto) 2.5 % Basophils (%) (Auto) 0.3 % Neutrophils # (Auto) 7.7 TH/MM3 Lymphocytes # (Auto) 1.5 TH/MM3 Monocytes # (Auto) 0.6 TH/MM3 Eosinophils # (Auto) 0.3 TH/MM3 Basophils # (Auto) 0.0 TH/MM3 CBC Comment DIFF FINAL Differential Comment Blood Urea Nitrogen 22 MG/DL Creatinine 1.04 MG/DL Random Glucose 91 MG/DL Calcium Level 8.9 MG/DL Sodium Level 138 MEQ/L Potassium Level 3.5 MEQ/L Chloride Level 105 MEQ/L Carbon Dioxide Level 25.4 MEQ/L Anion Gap 8 MEQ/L Estimat Glomerular Filtration Rate 55 ML/MIN Lactic Acid Level 0.8 mmol/L MDM Medical Record Reviewed: Yes Supervised Visit with KALEB: Yes Narrative Course I was asked by Dr. Gan to see this patient for an abscess of the left forearm. I&D of abscess was performed. Wound culture was obtained. Please see my procedure note. Procedures Procedure Narrative After the risks and benefits were discussed the following procedure was performed: INCISION AND DRAINAGE OF ABSCESS: The area was prepped and was sterilely draped. A subcutaneous wheal of 1 % Xylocaine with epi with a total number 3.5 mL was used to anesthetize the area. The area was properly anesthetized. A number 11 scalpel was used to make to 0.5 cm incisions across the area of the abscess. Cultures were obtained. The abscess was drained an irrigated with normal saline. Packing was not placed due to the obvious open nature of the first incision. Sterile dressing applied. Patient advised to have wound checked in two days. Condition: Stable Shailesh Busch September 28, 2017 10:35
--- NOTE | 2017-09-28 11:10 | HHI.HP ---
[facility] Service Family Medicine Primary Care Physician Unknown Admission Diagnosis Diagnoses: International Travel<30 Days: No Contact w/Intl Traveler<30days: No Known Affected Area: No History of Present Illness 51-year-old female with history of breast cancer presents today with complaints of left forearm abscess with redness and pain running up her left arm. First noticed raised lesion on her L arm 1 week ago. She tried to drain it in the shower and since it has progressively felt harder and has had swelling/redness expanding up her forearm up to the elbow. Has multiple other excoriation on her hands. No dog/animal bites. She initially thought it was an insect bite. She's having generalized muscle aches. Her brother (who she's been with recently) has a current MRSA infection. She has had some subjective fever/chills at night for about a week as well - improved on Motrin. No numbness, tingling or change in sensation in her L hand. She had MRSA infection in 2013 while on chemotherapy. Not currently on chemotherapy. 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 She came to ED 1 month ago for kidney stone and was given Flomax and Keflex. Finished Keflex on September 07. She still has occasional flank pain. Is seeing an urologist in 2 weeks. Denies hematuria. Has had some dysuria. (Jonnathan Morin MD R1) Review of Systems Constitutional: COMPLAINS OF: Fever, Chills, Night Sweats, DENIES: Weight gain , Weight loss Eyes: DENIES: Blurred vision, Diplopia, Photosensitivity, Double Vision Ears, nose, mouth, throat: COMPLAINS OF: Throat pain, Running Nose Respiratory: DENIES: Cough, Wheezing, Shortness of breath Cardiovascular: DENIES: Palpitations, Lower Extremity Edema Gastrointestinal: COMPLAINS OF: Nausea (chronic), DENIES: Abdominal pain, Black stools, Bloody stools, Constipation, Diarrhea, Vomiting Genitourinary: COMPLAINS OF: Dysuria, DENIES: Hematuria Musculoskeletal: DENIES: Joint pain Integumentary: DENIES: Rash Hematologic/lymphatic: DENIES: Lymphadenopathy Neurologic: COMPLAINS OF: Headache (Jonnathan Morin MD R1) Past Family Social History Past Medical History History of breast cancer - Dr. Ruiz is oncologist Hypothyroidism Stroke - during cholecystectomy Prior MRSA infection Past Surgical History Cholecystectomy Mastectomy - L side 2014 Hysterectomy 2006 Knee surgery (Jonnathan Morin MD R1) Allergies: Coded Allergies: acetaminophen (Verified Allergy, Mild, Itching, 08/10/17) hydrocodone (Verified Allergy, Mild, Nausea/Vomiting, 08/10/17) oxycodone (Verified Allergy, Mild, Itching, 08/10/17) *MDRO Multi-Drug Resistant Organism (Verified Adverse Reaction, Unknown, ) MRSA MRSA PCR screens negative on 01/12/2015 & 01/14/2015 Cleared per Infection Control Family History DM, HTN - brother thyroid disease in sister Pancreatic cancer in father Social History Lives at home with a roommate 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 1 ppd for 40 years Denies any recent drug use. Possibly did cocaine when she was younger. (Jonnathan Morin MD R1) Physical Exam Vital Signs Vital Signs Date Time Temp Pulse Resp B/P (MAP) Pulse Ox O2 Delivery O2 Flow Rate FiO2 09/28/17 08:56 97.7 103 16 121/82 (95) 99 Physical Exam GENERAL: This is a well-nourished, well-developed patient, in no apparent distress. SKIN: Cool and dry. Several excoriations noted on patient's right hand. No drainage or bleeding appreciated. HEAD: Atraumatic. Normocephalic. No temporal or scalp tenderness. EYES: Pupils equal round and reactive. Extraocular motions intact. No scleral icterus. No injection or drainage. ENT: Nose without bleeding, purulent drainage or septal hematoma. Throat without erythema, tonsillar hypertrophy or exudate. Uvula midline. Airway patent. NECK: Trachea midline. No JVD or lymphadenopathy. Supple, nontender, no meningeal signs. CARDIOVASCULAR: Regular rate and rhythm without murmurs, gallops, or rubs. RESPIRATORY: Clear to auscultation. Breath sounds equal bilaterally. No wheezes , rales, or rhonchi. GASTROINTESTINAL: Abdomen soft, non-tender, nondistended. No hepato-splenomegaly , or palpable masses. No guarding. MUSCULOSKELETAL: Extremities without clubbing, cyanosis, or edema. Previously drained abscess measuring roughly 4cm by 3cm on L forearm. Small amount of blood oozing from I&D site. Circumferential erythema/edema extending from the L antecubital fossa distally to the wrist. No calf tenderness. Negative Homans sign bilaterally. NEUROLOGICAL: Awake and alert. Cranial nerves II through XII intact. Motor and sensory grossly within normal limits. Five out of 5 muscle strength in all muscle groups. Normal speech. Laboratory Laboratory Tests Test 09/28/17 09:30 White Blood Count 10.1 Red Blood Count 4.56 Hemoglobin 13.1 Hematocrit 38.9 Mean Corpuscular Volume 85.3 Mean Corpuscular Hemoglobin 28.6 Mean Corpuscular Hemoglobin Concent 33.6 Red Cell Distribution Width 14.6 Platelet Count 229 Mean Platelet Volume 8.0 Neutrophils (%) (Auto) 76.4 Lymphocytes (%) (Auto) 15.0 Monocytes (%) (Auto) 5.8 Eosinophils (%) (Auto) 2.5 Basophils (%) (Auto) 0.3 Neutrophils # (Auto) 7.7 Lymphocytes # (Auto) 1.5 Monocytes # (Auto) 0.6 Eosinophils # (Auto) 0.3 Basophils # (Auto) 0.0 CBC Comment DIFF FINAL Differential Comment Blood Urea Nitrogen 22 Creatinine 1.04 Random Glucose 91 Calcium Level 8.9 Sodium Level 138 Potassium Level 3.5 Chloride Level 105 Carbon Dioxide Level 25.4 Anion Gap 8 Estimat Glomerular Filtration Rate 55 Lactic Acid Level 0.8 Date/Time Source Procedure Growth Status 09/28/17 09:35 Blood Peripheral Aerobic Blood Culture Pending Received 09/28/17 09:35 Blood Peripheral Anaerobic Blood Culture Pending Received (Jonnathan Morin MD R1) Result Diagram: 09/28/1730 09/28/1730 Imaging Last 24 hours Impressions Radius/Ulna X-Ray 09/28/17 0000 Signed Impressions: Service Date/Time: Thursday, September 28, 2017 12:18 - CONCLUSION: 1. Focal soft tissue swelling. 2. The bony structures are grossly unremarkable. Levi Gonzales MD (Jonnathan Morin MD R1) Caprini VTE Risk Assessment Caprini VTE Risk Assessment: Mod/High Risk (score >= 2) Caprini Risk Assessment Model Point Value = 1 Point Value = 2 Point Value = 3 Point Value = 5 Age 41-60 Minor surgery BMI > 25 kg/m2 Swollen legs Varicose veins or History of unexplained or recurrent spontaneous Oral contraceptives or hormone replacement Sepsis (< 1 month) Serious lung disease, including pneumonia (< 1 month) Abnormal pulmonary function Acute myocardial infarction Congestive heart failure (< 1 month) History of inflammatory bowel disease Medical patient at bed rest Age 61-74 Arthroscopic surgery Major open surgery (> 45 min) Laparoscopic surgery (> 45 min) Malignancy Confined to bed (> 72 hours) Immobilizing plaster cast Central venous access Age >= 75 History of VTE Family history of VTE Factor V Leiden Prothrombin 55299H Lupus anticoagulant Anticardiolipin antibodies Elevated serum homocysteine Heparin-induced thrombocytopenia Other congenital or acquired thrombophilia Stroke (< 1 month) Elective arthroplasty Hip, pelvis, or leg fracture Acute spinal cord injury (< 1 month) Prophylaxis Regimen Total Risk Factor Score Risk Level Prophylaxis Regimen 0-1 Low Early ambulation 2 Moderate Order ONE of the following: *Sequential Compression Device (SCD) *Heparin 5000 units SQ BID 3-4 Higher Order ONE of the following medications: *Heparin 5000 units SQ TID *Enoxaparin/Lovenox 40 mg SQ daily (WT < 150 kg, CrCl > 30 mL/min) *Enoxaparin/Lovenox 30 mg SQ daily (WT < 150 kg, CrCl > 10-29 mL/min) *Enoxaparin/Lovenox 30 mg SQ BID (WT < 150 kg, CrCl > 30 mL/min) AND/OR *Sequential Compression Device (SCD) 5 or more Highest Order ONE of the following medications: *Heparin 5000 units SQ TID (Preferred with Epidurals) *Enoxaparin/Lovenox 40 mg SQ daily (WT < 150 kg, CrCl > 30 mL/min) *Enoxaparin/Lovenox 30 mg SQ daily (WT < 150 kg, CrCl > 10-29 mL/min) *Enoxaparin/Lovenox 30 mg SQ BID (WT < 150 kg, CrCl > 30 mL/min) AND *Sequential Compression Device (SCD) (Jonnathan Morin MD R1) Assessment and Plan Assessment and Plan 51-year-old female with past medical history of breast cancer, hypothyroidism and history of MRSA infection presenting with left forearm cellulitis/abscess. I&D performed in the ED. Blood cultures and wound cultures obtained. Currently not meeting SIRS criteria. Patient started on vancomycin, will be admitted observation. Code Status Alternative code with no intubation Discussed Condition With Dr. Melo Grossman (Jonnathan Morin MD R1) Problem List: (1) Abscess of left forearm ICD Codes: L02.414 - Cutaneous abscess of left upper limb Plan: One-week history of progressive swelling, pain and redness overlying the left forearm Abscess measuring roughly 3 x 4 cm. I&D performed in the ER Past history of MRSA infection, MRSA exposure in the last week Blood, wound cultures pending X-ray of the forearm shows no bone changes No leukocytosis on admission, lactic acid 0.8. Mildly tachycardic with a heart rate of 103 Starting on vancomycin to cover for MRSA MRSA screen ordered Motrin, morphine pain scale (2) Dysuria ICD Codes: R30.0 - Dysuria Plan: Patient does endorse dysuria on review of systems UA ordered (3) Breast cancer ICD Codes: C50.919 - Breast cancer Status: Resolved Plan: History of breast cancer - Dr. Ruiz is oncologist Not currently on chemotherapy Patient does endorse chronic postoperative pain following a left mastectomy, for which she reportedly takes p.o. Dilaudid every 6 hours Motrin, morphine pain scale for now. Will try to confirm Dilaudid prescription No further management at this time (4) Hypothyroidism ICD Codes: E03.9 - Hypothyroidism Status: Acute Plan: Known history of hypothyroidism Continue home Synthroid (5) FEN Plan: Normal saline at 100 mL/h Electrolyte within normal limits. Will replace as needed Regular diet Lovenox for DVT prophylaxis (Jonnathan Morin MD R1) Problem List: (1) Abscess of left forearm ICD Codes: L02.414 - Cutaneous abscess of left upper limb Plan: One-week history of progressive swelling, pain and redness overlying the left forearm Abscess measuring roughly 3 x 4 cm. I&D performed in the ER Past history of MRSA infection, MRSA exposure in the last week Blood, wound cultures pending X-ray of the forearm shows no bone changes No leukocytosis on admission, lactic acid 0.8. Mildly tachycardic with a heart rate of 103 Starting on vancomycin to cover for MRSA MRSA screen ordered Motrin, morphine pain scale (2) Dysuria ICD Codes: R30.0 - Dysuria Plan: Patient does endorse dysuria on review of systems UA ordered (3) Breast cancer ICD Codes: C50.919 - Breast cancer Status: Resolved Plan: History of breast cancer - Dr. Ruiz is oncologist Not currently on chemotherapy Patient does endorse chronic postoperative pain following a left mastectomy, for which she reportedly takes p.o. Dilaudid every 6 hours Motrin, morphine pain scale for now. Will try to confirm Dilaudid prescription No further management at this time (4) Hypothyroidism ICD Codes: E03.9 - Hypothyroidism Status: Acute Plan: Known history of hypothyroidism Continue home Synthroid (5) FEN Plan: Normal saline at 100 mL/h Electrolyte within normal limits. Will replace as needed Regular diet Lovenox for DVT prophylaxis See the residents documentation for details. I saw and evaluated the patient regarding the irving portions of this evaluation and agree with the residents findings and plans as written. Parts of this note were created using [employer] voice recognition software program. While efforts were made to correct any mistakes made by this software, some mistakes, errors, and omissions may remain in the final note that were not caught when the note was originally created. Plan of care was discussed and agreed upon with the patient as specifically documented in the above note. An opportunity to ask questions with explanation was provided. Patient voiced understanding on all information reviewed and discussed. (Arvind Grossman MD) Jonnathan Morin MD R1 September 28, 2017 11:10 Arvind Grossman MD September 28, 2017 14:46
[2017-09-28] MEDS ORDERED: PROMETHAZINE HCL 25 MG TAB PO PRN (11:30)
[2017-09-28] MEDS ORDERED: HYDROmorphone HCL 4 MG TAB PO PRN (11:30)
[2017-09-28] MEDS ORDERED: NALOXONE HCL 0.4 MG/ML AMP IV PUSH PRN ×2 (12:00→13:15)
[2017-09-28] MEDS ORDERED: SENNOSIDES 8.6 MG TAB PO PRN (12:00)
[2017-09-28] MEDS ORDERED: MAGNESIUM HYDROXIDE SUSP 30 ML CUP PO PRN (12:00)
[2017-09-28] MEDS ORDERED: Vancomycin Consult Pharmacy 1 EA OTHER SCH (12:00)
[2017-09-28] MEDS ORDERED: SODIUM CHLORIDE 0.9% FLUSH 10 ML FLUSH IV FLUSH PRN (12:00)
[2017-09-28] MEDS ORDERED: ONDANSETRON ODT 4 MG TAB PO PRN (12:00)
[2017-09-28] MEDS ORDERED: BISACODYL 10 MG SUPP RECTAL PRN (12:00)
[2017-09-28] MEDS ORDERED: LACTULOSE SYRUP 20 GM/30 ML CUP PO PRN (12:00)
[2017-09-28] MEDS ORDERED: ONDANSETRON HCL 4 MG/2 ML VIAL IVP PRN (12:00)
--- NOTE | 2017-09-28 12:31 | RADRPT ---
EXAM DATE/TIME: 09/28/2017 12:18 [facility] COMPARISON: No previous studies available for comparison. INDICATIONS : Left forearm pain, swelling, and inflammation. Patient states she got bit by something. MEDICAL HISTORY : Carcinoma, breast. Renal calculi. SURGICAL HISTORY : Hysterectomy. Mastectomy, left. ENCOUNTER: Initial ACUITY: 1 week PAIN SCORE: 8/10 LOCATION: Left forearm FINDINGS: Two view examination of the left forearm demonstrates no evidence of fracture or dislocation. Bony m ineralization is normal. Focal soft tissue swelling involving the mid forearm. No definite radiopaque foreign bodies are demonstrated. CONCLUSION: 1. Focal soft tissue swelling. 2. The bony structures are grossly unremarkable. Levi Gonzales MD on September 28, 2017 at 12:29 Board Certified Radiologist. This report was verified electronically.
[2017-09-28] MEDS: VANCOMYCIN INJ 1,000 MG in SODIUM CHLOR 0.9% 250 ML INJ 250 ML IV SCH (13:02)
[2017-09-28] MEDS ORDERED: IBUPROFEN 400 MG TAB PO PRN (13:15)
[2017-09-28] MEDS ORDERED: MORPHINE SULFATE 4 MG/ML INJ IV PUSH PRN (14:00)
[2017-09-28] MEDS: ENOXAPARIN SODIUM 40 MG/0.4 ML SYRINGE SQ SCH (14:36)
[2017-09-28] MEDS: MORPHINE SULFATE 4 MG/ML INJ IV PUSH PRN ×2 (14:37→21:17)
[2017-09-28] MEDS: SODIUM CHLOR 0.9% 1000 ML INJ 1,000 ML IV SCH (16:11)
[2017-09-28 17:00] VITALS: BP 154/93; PULSE 93; RESP 18; TEMP 98.2; O2SAT 98
[2017-09-28 20:00] VITALS: BP 108/65; PULSE 111; RESP 18; TEMP 97.9; O2SAT 91
[2017-09-28] MEDS: SODIUM CHLORIDE 0.9% FLUSH 10 ML FLUSH IV FLUSH SCH (21:00)
[2017-09-28] MEDS: DOCUSATE SODIUM 50 MG/SENNA 8.6 MG TAB PO SCH (21:17)
[2017-09-29] VITALS: BP 122/60; PULSE 86; RESP 16; TEMP 97.8; O2SAT 96
[2017-09-29] MEDS: MORPHINE SULFATE 4 MG/ML INJ IV PUSH PRN ×3 (00:12→06:06)
[2017-09-29] MEDS: SODIUM CHLOR 0.9% 1000 ML INJ 1,000 ML IV SCH ×2 (00:12→07:55)
[2017-09-29 04:00] VITALS: BP 134/85; PULSE 71; RESP 16; TEMP 97.7; O2SAT 95
[2017-09-29] MEDS: VANCOMYCIN INJ 1,000 MG in SODIUM CHLOR 0.9% 250 ML INJ 250 ML IV SCH ×2 (06:06→23:41)
[2017-09-29] MEDS: LEVOTHYROXINE SODIUM 150 MCG TAB PO SCH (06:06)
[2017-09-29 07:36] LABS: AUTOMATED NEUTROPHIL # 4.5 TH/MM3 (1.8-7.7); BASOPHIL % 0.4 % (0.0-2.0); EOSINOPHIL # 0.3 TH/MM3 (0-0.4); EOSINOPHIL % 4.4 % (0.0-4.0); HEMATOCRIT 34.8 % (35.0-46.0); HEMOGLOBIN 11.6 GM/DL (11.6-15.3); LYMPH % 24.1 % (9.0-44.0); LYMPHOCYTE # 1.7 TH/MM3 (1.0-4.8); MEAN CELL VOLUME 84.6 FL (80.0-100.0); MEAN CORPUSCULAR HEMOGLOBIN 28.1 PG (27.0-34.0); MEAN CORPUSCULAR HGB CONC 33.3 % (32.0-36.0); MEAN PLATELET VOLUME 8.3 FL (7.0-11.0); MONO % 6.6 % (0.0-8.0); MONOCYTE # 0.5 TH/MM3 (0-0.9); NEUT % 64.5 % (16.0-70.0); PLATELET COUNT 231 TH/MM3 (150-450); RED BLOOD COUNT 4.12 MIL/MM3 (4.00-5.30); RED CELL DISTRIBUTION WIDTH 14.5 % (11.6-17.2); WHITE BLOOD COUNT 6.9 TH/MM3 (4.0-11.0)
[2017-09-29] MEDS: SODIUM CHLORIDE 0.9% FLUSH 10 ML FLUSH IV FLUSH SCH ×2 (07:38→20:11)
[2017-09-29 07:45] VITALS: BP 157/84; PULSE 77; RESP 20; TEMP 97.8; O2SAT 98
[2017-09-29] MEDS: DOCUSATE SODIUM 50 MG/SENNA 8.6 MG TAB PO SCH ×2 (07:55→20:11)
[2017-09-29 08:07] LABS: ALT (GPT) 25 U/L (10-53); AST (GOT) 21 U/L (15-37); BICARBONATE 22.7 MEQ/L (21.0-32.0); BLOOD UREA NITROGEN 17 MG/DL (7-18); CALCIUM 8.5 MG/DL (8.5-10.1); CHLORIDE 108 MEQ/L (98-107); CREATININE 0.85 MG/DL (0.50-1.00); GLOMERULAR FILTRATION RATE 70 ML/MIN (>89); GLUCOSE,RANDOM 82 MG/DL (74-106); SODIUM (NA) 140 MEQ/L (136-145)
[2017-09-29 08:09] LABS: ALKALINE PHOSPHATASE 92 U/L (45-117); TOTAL BILIRUBIN ADULT 0.4 MG/DL (0.2-1.0); TOTAL PROTEIN 7.3 GM/DL (6.4-8.2)
[2017-09-29] MEDS ORDERED: PNEUMOCOCCAL POLYVALENT INJ 25 MCG/0.5 ML SYR IM ONE (10:00)
--- NOTE | 2017-09-29 10:51 | HHI.FPPN ---
Subjective Remarks No acute events overnight. Patient states that her arm feels much better today and the swelling/redness is gone down. She is complaining of some itching with her pain medication. Otherwise no chest pain, shortness of breath, nausea or vomiting. (Jonnathan Morin MD R1) Objective Vitals Vital Signs Date Time Temp Pulse Resp B/P (MAP) Pulse Ox O2 Delivery O2 Flow Rate FiO2 09/29/17 07:45 97.8 77 20 157/84 (108) 98 09/29/17 04:00 97.7 71 16 134/85 (101) 95 09/29/17 03:51 Room Air 09/29/17 00:00 97.8 86 16 122/60 (80) 96 09/28/17 20:00 Room Air 09/28/17 20:00 97.9 111 18 108/65 (79) 91 09/28/17 17:00 98.2 93 18 154/93 (113) 98 09/28/17 14:42 18 I/O 09/28/17 09/28/17 09/28/17 09/29/17 09/29/17 09/29/17 07:00 15:00 23:00 07:00 15:00 23:00 Intake Total 2420 ml Balance 2420 ml Intake Oral 840 ml IV Total 1580 ml # Voids 2 # Bowel Movements 0 (Jonnathan Morin MD R1) Result Diagram: 09/29/17 0649 09/29/17 0649 Imaging Last 48 hours Impressions Radius/Ulna X-Ray 09/28/17 0000 Signed Impressions: Service Date/Time: Thursday, September 28, 2017 12:18 - CONCLUSION: 1. Focal soft tissue swelling. 2. The bony structures are grossly unremarkable. Levi Gonzalse MD Objective Remarks GENERAL: This is a well-nourished, well-developed patient, in no apparent distress. SKIN: Cool and dry. Several excoriations noted on patient's right hand. No drainage or bleeding appreciated. HEAD: Atraumatic. Normocephalic. CARDIOVASCULAR: Regular rate and rhythm without murmurs, gallops, or rubs. RESPIRATORY: Clear to auscultation. Breath sounds equal bilaterally. No wheezes , rales, or rhonchi. GASTROINTESTINAL: Abdomen soft, non-tender, nondistended. No hepato-splenomegaly , or palpable masses. No guarding. MUSCULOSKELETAL: Extremities without clubbing, cyanosis, or edema. Previously drained abscess measuring roughly 4cm by 3cm on L forearm -improved from prior exam. Circumferential erythema/edema extending from the L antecubital fossa distally to the wrist has significantly improved from prior exam. NEUROLOGICAL: Awake and alert. Motor and sensory grossly within normal limits. Normal speech. (Jonnathan Morin MD R1) A/P Assessment and Plan 51-year-old female with past medical history of breast cancer, hypothyroidism and history of MRSA infection presenting with left forearm cellulitis/abscess. I&D performed in the ED. Blood cultures and wound cultures obtained. Currently not meeting SIRS criteria. Patient started on vancomycin, will be admitted observation. Discharge Planning Likely tomorrow after wound cultures result (Jonnathan Morin MD R1) Problem List: (1) Abscess of left forearm ICD Codes: L02.414 - Cutaneous abscess of left upper limb Plan: One-week history of progressive swelling, pain and redness overlying the left forearm Abscess measuring roughly 3 x 4 cm. I&D performed in the ER Past history of MRSA infection, MRSA exposure in the last week Blood, wound cultures pending X-ray of the forearm shows no bone changes Continues to have no leukocytosis or signs of systemic infection Continue vancomycin MRSA screen ordered Motrin, p.o. Dilaudid pain scale (2) Dysuria ICD Codes: R30.0 - Dysuria Plan: Patient does endorse dysuria on review of systems UA ordered (3) Breast cancer ICD Codes: C50.919 - Breast cancer Status: Resolved Plan: History of breast cancer - Dr. Ruiz is oncologist Not currently on chemotherapy Patient does endorse chronic postoperative pain following a left mastectomy, for which she reportedly takes p.o. Dilaudid every 6 hours No further management at this time (4) Hypothyroidism ICD Codes: E03.9 - Hypothyroidism Status: Acute Plan: Known history of hypothyroidism Continue home Synthroid (5) FEN Plan: Tolerating p.o. with no signs of sepsis. No IV fluids at this time Electrolyte within normal limits. Will replace as needed Regular diet Lovenox for DVT prophylaxis See the residents documentation for details. I saw and evaluated the patient regarding the irving portions of this evaluation and agree with the residents findings and plans as written. Parts of this note were created using [employer] voice recognition software program. While efforts were made to correct any mistakes made by this software, some mistakes, errors, and omissions may remain in the final note that were not caught when the note was originally created. Plan of care was discussed and agreed upon with the patient as specifically documented in the above note. An opportunity to ask questions with explanation was provided. Patient voiced understanding on all information reviewed and discussed. (Jonnathan Morin MD R1) Problem List: (1) Abscess of left forearm ICD Codes: L02.414 - Cutaneous abscess of left upper limb Plan: One-week history of progressive swelling, pain and redness overlying the left forearm Abscess measuring roughly 3 x 4 cm. I&D performed in the ER Past history of MRSA infection, MRSA exposure in the last week Blood, wound cultures pending X-ray of the forearm shows no bone changes Continues to have no leukocytosis or signs of systemic infection Continue vancomycin MRSA screen ordered Motrin, p.o. Dilaudid pain scale (2) Dysuria ICD Codes: R30.0 - Dysuria Plan: Patient does endorse dysuria on review of systems UA ordered (3) Breast cancer ICD Codes: C50.919 - Breast cancer Status: Resolved Plan: History of breast cancer - Dr. Ruiz is oncologist Not currently on chemotherapy Patient does endorse chronic postoperative pain following a left mastectomy, for which she reportedly takes p.o. Dilaudid every 6 hours No further management at this time (4) Hypothyroidism ICD Codes: E03.9 - Hypothyroidism Status: Acute Plan: Known history of hypothyroidism Continue home Synthroid (5) FEN Plan: Tolerating p.o. with no signs of sepsis. No IV fluids at this time Electrolyte within normal limits. Will replace as needed Regular diet Lovenox for DVT prophylaxis See the residents documentation for details. I saw and evaluated the patient regarding the irving portions of this evaluation and agree with the residents findings and plans as written. Parts of this note were created using [employer] voice recognition software program. While efforts were made to correct any mistakes made by this software, some mistakes, errors, and omissions may remain in the final note that were not caught when the note was originally created. Plan of care was discussed and agreed upon with the patient as specifically documented in the above note. An opportunity to ask questions with explanation was provided. Patient voiced understanding on all information reviewed and discussed. (Arvind Grossman MD) Jonnathan Morin MD R1 September 29, 2017 10:50 Arvind Grossman MD October 01, 2017 11:31
[2017-09-29] MEDS: HYDROmorphone HCL 4 MG TAB PO PRN ×3 (11:05→23:40)
[2017-09-29 12:00] VITALS: BP 113/59; PULSE 75; RESP 18; TEMP 97.4; O2SAT 96
[2017-09-29] MEDS: ENOXAPARIN SODIUM 40 MG/0.4 ML SYRINGE SQ SCH (13:50)
[2017-09-29 15:40] VITALS: BP 130/83; PULSE 68; RESP 20; TEMP 97.9; O2SAT 97
[2017-09-29] MEDS: hydrOXYzine PAMOATE 25 MG CAP PO PRN (17:39)
[2017-09-29] MEDS: ALPRAZolam 0.25 MG TAB PO PRN (17:39)
[2017-09-29 20:00] VITALS: BP 113/72; PULSE 85; RESP 18; TEMP 98.1; O2SAT 98
[2017-09-30] VITALS: BP 123/82; PULSE 73; RESP 18; TEMP 97.8; O2SAT 97
[2017-09-30] MEDS: ALPRAZolam 0.25 MG TAB PO PRN ×2 (01:40→09:46)
[2017-09-30 04:00] VITALS: BP 141/91; PULSE 69; RESP 16; TEMP 97.7; O2SAT 98
[2017-09-30] MEDS: HYDROmorphone HCL 4 MG TAB PO PRN ×2 (05:23→11:58)
[2017-09-30] MEDS: LEVOTHYROXINE SODIUM 150 MCG TAB PO SCH (05:23)
[2017-09-30 06:21] LABS: BICARBONATE 22.9 MEQ/L (21.0-32.0); CALCIUM 8.5 MG/DL (8.5-10.1); CREATININE 0.96 MG/DL (0.50-1.00)
[2017-09-30 06:36] LABS: AUTOMATED NEUTROPHIL # 3.8 TH/MM3 (1.8-7.7); BASOPHIL % 0.6 % (0.0-2.0); EOSINOPHIL # 0.3 TH/MM3 (0-0.4); EOSINOPHIL % 3.9 % (0.0-4.0); HEMATOCRIT 34.8 % (35.0-46.0); HEMOGLOBIN 11.8 GM/DL (11.6-15.3); LYMPH % 28.7 % (9.0-44.0); LYMPHOCYTE # 1.8 TH/MM3 (1.0-4.8); MEAN CELL VOLUME 84.5 FL (80.0-100.0); MEAN CORPUSCULAR HEMOGLOBIN 28.6 PG (27.0-34.0); MEAN CORPUSCULAR HGB CONC 33.9 % (32.0-36.0); MEAN PLATELET VOLUME 8.4 FL (7.0-11.0); MONOCYTE # 0.5 TH/MM3 (0-0.9); NEUT % 58.8 % (16.0-70.0); PLATELET COUNT 224 TH/MM3 (150-450); RED BLOOD COUNT 4.12 MIL/MM3 (4.00-5.30); RED CELL DISTRIBUTION WIDTH 14.4 % (11.6-17.2); WHITE BLOOD COUNT 6.4 TH/MM3 (4.0-11.0)
[2017-09-30 07:55] VITALS: BP 147/86; PULSE 72; RESP 18; TEMP 97.3; O2SAT 99
[2017-09-30] MEDS: SODIUM CHLORIDE 0.9% FLUSH 10 ML FLUSH IV FLUSH SCH (09:00)
[2017-09-30] MEDS: DOCUSATE SODIUM 50 MG/SENNA 8.6 MG TAB PO SCH (09:00)
--- NOTE | 2017-09-30 09:28 | HHI.FPPN ---
Subjective Remarks No acute events overnight. Patient's swelling, redness and pain of continue to improve. Patient denies any history of IV drug use. Patient instructed to use Hibiclens as an outpatient to help prevent further MRSA infections. Will need to follow-up with wound care as an outpatient to monitor abscess healing. (Jonnathan Morin MD R1) Objective Vitals Vital Signs Date Time Temp Pulse Resp B/P (MAP) Pulse Ox O2 Delivery O2 Flow Rate FiO2 09/30/17 07:55 97.3 72 18 147/86 (106) 99 09/30/17 04:00 97.7 69 16 141/91 (108) 98 09/30/17 03:59 Room Air 09/30/17 00:00 97.8 73 18 123/82 (96) 97 09/30/17 00:00 Room Air 09/29/17 20:00 98.1 85 18 113/72 (86) 98 09/29/17 20:00 Room Air 09/29/17 15:40 97.9 68 20 130/83 (99) 97 09/29/17 12:00 97.4 75 18 113/59 (77) 96 I/O 09/29/17 09/29/17 09/29/17 09/30/17 09/30/17 09/30/17 07:00 15:00 23:00 07:00 15:00 23:00 Intake Total 2420 ml 1200 ml 760 ml Output Total 2 ml Balance 2420 ml 1200 ml 758 ml Intake Oral 840 ml 1200 ml 510 ml IV Total 1580 ml 250 ml Output Urine Total 2 ml # Voids 2 8 # Bowel Movements 0 3 (Jonnathan Morin MD R1) Result Diagram: 09/30/17 0549 09/30/17 0549 Objective Remarks GENERAL: This is a well-nourished, well-developed patient, in no apparent distress. SKIN: Cool and dry. Several excoriations noted on patient's right hand. No drainage or bleeding appreciated. HEAD: Atraumatic. Normocephalic. CARDIOVASCULAR: Regular rate and rhythm without murmurs, gallops, or rubs. RESPIRATORY: Clear to auscultation. Breath sounds equal bilaterally. No wheezes , rales, or rhonchi. GASTROINTESTINAL: Abdomen soft, non-tender, nondistended. No hepato-splenomegaly , or palpable masses. No guarding. MUSCULOSKELETAL: Extremities without clubbing, cyanosis, or edema. Previously drained abscess measuring roughly 4cm by 3cm on L forearm -significantly improved from prior exam. Circumferential erythema/edema extending from the L antecubital fossa distally to the wrist continues to significantly improve. NEUROLOGICAL: Awake and alert. Motor and sensory grossly within normal limits. Normal speech. (Jonnathan Morin MD R1) A/P Assessment and Plan 51-year-old female with past medical history of breast cancer, hypothyroidism and history of MRSA infection presenting with left forearm cellulitis/abscess. I&D performed in the ED. Blood cultures and wound cultures obtained. Currently not meeting SIRS criteria. Patient started on vancomycin, will be admitted observation. Discharge Planning Discharge today with close follow-up with wound care (Jonnathan Morin MD R1) Problem List: (1) Abscess of left forearm ICD Codes: L02.414 - Cutaneous abscess of left upper limb Plan: One-week history of progressive swelling, pain and redness overlying the left forearm Abscess measuring roughly 3 x 4 cm. I&D performed in the ER X-ray of the forearm shows no bone changes Denies any history of IV drug use Wound cultures growing MRSA with sensitivity to Bactrim Blood cultures with no growth in 48 hours Continues to have no leukocytosis or signs of systemic infection We will discharge on double strength Bactrim for 7 days, close follow-up with wound care (2) Breast cancer ICD Codes: C50.919 - Breast cancer Status: Resolved Plan: History of breast cancer - Dr. Ruiz is oncologist Not currently on chemotherapy Patient does endorse chronic postoperative pain following a left mastectomy, for which she reportedly takes p.o. Dilaudid every 6 hours No further management at this time (3) Hypothyroidism ICD Codes: E03.9 - Hypothyroidism Status: Acute Plan: Known history of hypothyroidism Continue home Synthroid (4) FEN Plan: Tolerating p.o. with no signs of sepsis. No IV fluids at this time Electrolyte within normal limits. Will replace as needed Regular diet Lovenox for DVT prophylaxis See the residents documentation for details. I saw and evaluated the patient regarding the irving portions of this evaluation and agree with the residents findings and plans as written. Parts of this note were created using [employer] voice recognition software program. While efforts were made to correct any mistakes made by this software, some mistakes, errors, and omissions may remain in the final note that were not caught when the note was originally created. Plan of care was discussed and agreed upon with the patient as specifically documented in the above note. An opportunity to ask questions with explanation was provided. Patient voiced understanding on all information reviewed and discussed. (Jonnathan Morin MD R1) Problem List: (1) Abscess of left forearm ICD Codes: L02.414 - Cutaneous abscess of left upper limb Plan: One-week history of progressive swelling, pain and redness overlying the left forearm Abscess measuring roughly 3 x 4 cm. I&D performed in the ER X-ray of the forearm shows no bone changes Denies any history of IV drug use Wound cultures growing MRSA with sensitivity to Bactrim Blood cultures with no growth in 48 hours Continues to have no leukocytosis or signs of systemic infection We will discharge on double strength Bactrim for 7 days, close follow-up with wound care (2) Breast cancer ICD Codes: C50.919 - Breast cancer Status: Resolved Plan: History of breast cancer - Dr. Ruiz is oncologist Not currently on chemotherapy Patient does endorse chronic postoperative pain following a left mastectomy, for which she reportedly takes p.o. Dilaudid every 6 hours No further management at this time (3) Hypothyroidism ICD Codes: E03.9 - Hypothyroidism Status: Acute Plan: Known history of hypothyroidism Continue home Synthroid (4) FEN Plan: Tolerating p.o. with no signs of sepsis. No IV fluids at this time Electrolyte within normal limits. Will replace as needed Regular diet Lovenox for DVT prophylaxis See the residents documentation for details. I saw and evaluated the patient regarding the irving portions of this evaluation and agree with the residents findings and plans as written. Parts of this note were created using [employer] voice recognition software program. While efforts were made to correct any mistakes made by this software, some mistakes, errors, and omissions may remain in the final note that were not caught when the note was originally created. Plan of care was discussed and agreed upon with the patient as specifically documented in the above note. An opportunity to ask questions with explanation was provided. Patient voiced understanding on all information reviewed and discussed. (Arvind Grossman MD) Jonnathan Morin MD R1 September 30, 2017 09:28 Arvind Grossman MD October 01, 2017 11:45
[2017-09-30] MEDS: hydrOXYzine PAMOATE 25 MG CAP PO PRN (09:46)
[2017-09-30 11:48] VITALS: BP 138/81; PULSE 80; RESP 18; TEMP 97.9; O2SAT 97
[2017-09-30] MEDS ORDERED: HYDR1CAP30 PO (12:34)
[2017-09-30] MEDS ORDERED: SULF1TAB23 PO (12:34)
--- NOTE | 2017-09-30 13:04 | HHI.DCPOC ---
Discharge Care Plan Diagnosis: (1) Abscess of left forearm (2) History of breast cancer Goals to Promote Your Health * To prevent worsening of your condition and complications * To maintain your health at the optimal level Directions to Meet Your Goals Take your medications as prescribed Follow your dietary instruction Follow activity as directed Keep your appointments as scheduled Take your immunizations and boosters as scheduled If your symptoms worsen call your PCP, if no PCP go to Urgent Care Center or Emergency Room Smoking is Dangerous to Your Health. Avoid second hand smoke Call the 24-hour hour crisis hotline for domestic abuse at Jonnathan Morin MD R1 September 30, 2017 13:04 Arvind Grossman MD October 01, 2017 11:42
[2017-09-30] MEDS ORDERED: HIBI4LIQ TOPICAL (13:06)
--- NOTE | 2017-09-30 13:29 | HHI.DS ---
Jonnathan Morin MD R1 09/30/17 1329: Discharge Summary Admission Date September 28, 2017 at 13:28 Discharge Date: September 30, 2017 Admitting Diagnosis Left forearm abscess with MRSA infection (1) Abscess of left forearm ICD Codes: L02.414 - Cutaneous abscess of left upper limb (2) Breast cancer ICD Codes: C50.919 - Breast cancer Status: Resolved (3) Hypothyroidism ICD Codes: E03.9 - Hypothyroidism Status: Acute Brief History 51-year-old female with history of breast cancer presents today with complaints of left forearm abscess with redness and pain running up her left arm. First noticed raised lesion on her L arm 1 week ago. She tried to drain it in the shower and since it has progressively felt harder and has had swelling/redness expanding up her forearm up to the elbow. Has multiple other excoriation on her hands. No dog/animal bites. She initially thought it was an insect bite. She's having generalized muscle aches. Her brother (who she's been with recently) has a current MRSA infection. She has had some subjective fever/chills at night for about a week as well - improved on Motrin. No numbness, tingling or change in sensation in her L hand. She had MRSA infection in 2013 while on chemotherapy. Not currently on chemotherapy. 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 She came to ED 1 month ago for kidney stone and was given Flomax and Keflex. Finished Keflex on September 07. She still has occasional flank pain. Is seeing an urologist in 2 weeks. Denies hematuria. Has had some dysuria. CBC/BMP: 09/30/17 0549 09/30/17 0549 Significant Findings Laboratory Tests Test 09/28/17 09:30 09/29/17 06:49 09/30/17 05:49 Neutrophils (%) (Auto) 76.4 % (16.0-70.0) Blood Urea Nitrogen 22 MG/DL (7-18) Creatinine 1.04 MG/DL (0.50-1.00) Estimat Glomerular Filtration Rate 55 ML/MIN (>89) 70 ML/MIN (>89) 61 ML/MIN (>89) Hematocrit 34.8 % (35.0-46.0) 34.8 % (35.0-46.0) Eosinophils (%) (Auto) 4.4 % (0.0-4.0) Albumin 3.0 GM/DL (3.4-5.0) Chloride Level 108 MEQ/L (98-107) 108 MEQ/L (98-107) PE at Discharge GENERAL: This is a well-nourished, well-developed patient, in no apparent distress. SKIN: Cool and dry. Several excoriations noted on patient's right hand. No drainage or bleeding appreciated. HEAD: Atraumatic. Normocephalic. CARDIOVASCULAR: Regular rate and rhythm without murmurs, gallops, or rubs. RESPIRATORY: Clear to auscultation. Breath sounds equal bilaterally. No wheezes , rales, or rhonchi. GASTROINTESTINAL: Abdomen soft, non-tender, nondistended. No hepato-splenomegaly , or palpable masses. No guarding. MUSCULOSKELETAL: Extremities without clubbing, cyanosis, or edema. Previously drained abscess measuring roughly 4cm by 3cm on L forearm -significantly improved from prior exam. Circumferential erythema/edema extending from the L antecubital fossa distally to the wrist continues to significantly improve. NEUROLOGICAL: Awake and alert. Motor and sensory grossly within normal limits. Normal speech. Hospital Course Patient was admitted after an I&D performed in the ED of a left forearm abscess. Patient with a known history of MRSA infection and recent MRSA exposure. Patient did not have any signs of sepsis during hospitalization. Patient was started on IV vancomycin on admission. X-ray of the forearm showed no bone changes. Patient denied any history of IV drug use. Wound cultures from the abscess grew MRSA with sensitivity to Bactrim. Blood cultures were negative during hospitalization. On 09/30 patient had had no leukocytosis, signs of fever and pain was well controlled on her home p.o. Dilaudid. Patient was discharged on Bactrim for 7 day course with close follow-up with wound care. Pt Condition on Discharge: Good Discharge Disposition: Discharge Home Discharge Instructions DIET: Follow Instructions for: As Tolerated, No Restrictions Activities you can perform: Regular-No Restrictions Follow up Referrals: Appointment for Follow Up @ [facility] PCP Follow-up - 2 Weeks PCP Follow-up @ [facility] - 2-3 Days New Medications: Chlorhexidine Gluconate Topical (Hibiclens Topical) 4% Liq 1 APPLIC TOPICAL ONCE for Skin Cleanser, #118 ML 0 Refills Sulfamethoxazole-Trimethoprim (Sulfamethoxazole-Trimethoprim) 800-160 Mg Tab 1 TAB PO BID for Infection, #14 TAB 0 Refills Hydroxyzine Pamoate (Hydroxyzine Pamoate) 25 Mg Cap 25 MG PO Q6H PRN for ITCHING, #28 CAP Continued Medications: Alprazolam (Xanax) 2 Mg Tab 2.5 MG PO BID PRN for ANXIETY, TAB 0 Refills Hydromorphone (Dilaudid) 8 Mg Tab 8 MG PO Q6H PRN for Pain Management, TAB 0 Refills Ibuprofen (Ibuprofen) 600 Mg Tab 600 MG PO Q8HR PRN for PAIN, #30 TAB 0 Refills Ketorolac (Ketorolac) 10 Mg Tab 10 MG PO TID PRN for Pain Management, #15 TAB 0 Refills Levothyroxine (Synthroid) 150 Mcg Tab 150 MCG PO DAILY for Thyroid, #30 TAB 0 Refills Promethazine (Phenergan) 25 Mg Tablet 25 MG PO Q6H PRN for NAUSEA OR VOMITING, TAB 0 Refills Tamsulosin (Flomax) 0.4 Mg Cap 0.4 MG PO HS for Manage Prostate Problems, #5 CAP 0 Refills Discontinued Medications: Cephalexin (Keflex) 500 Mg Cap 500 MG PO Q12H for Infection for 7 Days, #14 CAP 0 Refills Arvind Grossman MD 10/01/17 1157: Discharge Summary CBC/BMP: 09/30/17 0549 09/30/17 0549 Discharge Instructions Follow up Referrals: Appointment for Follow Up @ [facility]IC PCP Follow-up - 2 Weeks PCP Follow-up @ [facility] - 2-3 Days New Medications: Chlorhexidine Gluconate Topical (Hibiclens Topical) 4% Liq 1 APPLIC TOPICAL ONCE for Skin Cleanser, #118 ML 0 Refills Sulfamethoxazole-Trimethoprim (Sulfamethoxazole-Trimethoprim) 800-160 Mg Tab 1 TAB PO BID for Infection, #14 TAB 0 Refills Hydroxyzine Pamoate (Hydroxyzine Pamoate) 25 Mg Cap 25 MG PO Q6H PRN for ITCHING, #28 CAP Continued Medications: Alprazolam (Xanax) 2 Mg Tab 2.5 MG PO BID PRN for ANXIETY, TAB 0 Refills Hydromorphone (Dilaudid) 8 Mg Tab 8 MG PO Q6H PRN for Pain Management, TAB 0 Refills Ibuprofen (Ibuprofen) 600 Mg Tab 600 MG PO Q8HR PRN for PAIN, #30 TAB 0 Refills Ketorolac (Ketorolac) 10 Mg Tab 10 MG PO TID PRN for Pain Management, #15 TAB 0 Refills Levothyroxine (Synthroid) 150 Mcg Tab 150 MCG PO DAILY for Thyroid, #30 TAB 0 Refills Promethazine (Phenergan) 25 Mg Tablet 25 MG PO Q6H PRN for NAUSEA OR VOMITING, TAB 0 Refills Tamsulosin (Flomax) 0.4 Mg Cap 0.4 MG PO HS for Manage Prostate Problems, #5 CAP 0 Refills Discontinued Medications: Cephalexin (Keflex) 500 Mg Cap 500 MG PO Q12H for Infection for 7 Days, #14 CAP 0 Refills Jonnathan Morin MD R1 September 30, 2017 13:29 Arvind Grossman MD October 01, 2017 11:57
[2017-09-30] MEDS ORDERED: PHARMACY ORDERED LAB ONE (17:45)
== END 2017-09-30 14:45 | disposition home or self-care (01) ==
LOC: NEPE 08:49 → INTOOBSV 13:28 → NEDA 13:28 → N04A 16:50
PROVIDERS: ADMIT Family Medicine; ATTEND Family Medicine
DX: L03.114 Cellulitis of left upper limb (principal); L02.414 Cutaneous abscess of left upper limb; C50.819 Malignant neoplasm of overlapping sites of unspecified female breast; B95.62 Methicillin resistant Staphylococcus aureus infection as the cause of diseases classified elsewhere; E03.9 Hypothyroidism, unspecified; G62.9 Polyneuropathy, unspecified; G89.28 Other chronic postprocedural pain; F17.210 Nicotine dependence, cigarettes, uncomplicated; Z23 Encounter for immunization; Z86.73 Personal history of transient ischemic attack (TIA), and cerebral infarction without residual deficits; Z90.12 Acquired absence of left breast and nipple; Z87.442 Personal history of urinary calculi; Z90.710 Acquired absence of both cervix and uterus; Z83.3 Family history of diabetes mellitus; Z82.49 Family history of ischemic heart disease and other diseases of the circulatory system; Z80.0 Family history of malignant neoplasm of digestive organs
CPT/HCPCS: 10060; 73090; 80048; 80053; 83605; 85025; 86403; 87040; 87070; 87147; 87186; 87205; 90471; 90714; 90732; 96361; 96365; 96366; 96368; 96372; 96375; 96376; 99285; G0378; J1650; J2270; J3370; J7030; J7050; Q0177